=== PATIENT | female | born 1935 | race Caucasian/White ===

== ENCOUNTER 2023-04-26 21:05 | Inpatient (IN) | payer MEDICARE, OTHER ==
[~2023-04-26] VITALS: Ht 165.1 cm; Wt 61.9 kg
[2023-04-27] VITALS (11 sets, daily range): BP systolic 121–149; BP diastolic 47–63
--- NOTE | 2023-04-27 00:15 | NUR ---
pt ARRIVED TO FLOOR VIA STRETCHER. pt TX TO MED/SURG BED WITH THE HELP OF 4 OTHER PERSONEL. BED WEIGHT ASSESSED. DR. BARRERA CALLED AND INFORMED OF pt ARRIVAL. NEW ORDERS RECIEVED AND VERIFIED WITH REPEAT BACK METHOD. IV X2 ASSESSED, WNL. NEW STATLOCK FOR ALARCON CATHETER PLACED ON pt. ASSESSMENT AND VITAL SIGNS DONE. BRIEF PLACED ON pt. pt REPOSITIONED. CALL LIGHT WITHIN REACH. FAMILY IN .
[2023-04-27] MEDS ORDERED: LIDOCAINE 2% VISCOUS 6 ML SYR TOP ONE (00:45)
[2023-04-27] MEDS ORDERED: LACTATED RINGER'S 1,000 ML IV SCH ×4 (00:45→23:45)
[2023-04-27] MEDS ORDERED: HYDROmorphone HCL 1 MG/ML SYR IV PRN (00:45)
[2023-04-27] MEDS ORDERED: ondansetron HCL 4 MG/2 ML VIAL IV PRN ×2 (00:45→11:00)
--- NOTE | 2023-04-27 01:00 | NUR ---
pt FIDGETING IN THE BED AND GRIMENCING. PRN PAIN MEDICATION ADMINISTERED. IVF STARTED PER ORDER, SEE MAR. pt DENIES ANY OTHER NEEDS AT THIS TIME. CALL LIGHT WITHIN REACH.
--- NOTE | 2023-04-27 03:40 | NUR ---
PRN PAIN MEDICATION ADMINISTERED. pt WAS GETTING RESTLESS AND HAD GRIMANCE ON HER FACE. pt FAMILY REQUESTED A WARM BLANKET FOR pt. NOT OTHER NEEDS AT THIS TIME. CALL LIGHT WITHIN REACH.
[2023-04-27 05:40] LABS: BASOPHILS 0.5 % (0-2); EOSINOPHILS 0.1 % (0-6); HEMATOCRIT 32.4 % (35.0-50.0); HEMOGLOBIN 10.9 g/dL (12.0-18.0); LYMPHOCYTES 13.2 % (24-44); MCH 31.8 (27-36); MCHC 33.7 g/dl (30-36); MCV 94.3 fl (81-99); MONOCYTES 6.7 % (0-12); NEUTROPHILS 79.5 % (39-80); PLATELET COUNT 208 K/uL (140-440); RBC 3.44 M/ul (4.3-5.7); RDW 13.4 (10.5-15.0)
--- NOTE | 2023-04-27 05:45 | NUR ---
ASSESSMENT AND VITAL SIGNS DONE. pt DENIES ANY OTHER NEEDS AT THIS TIME. CALL LIGHT WITHIN REACH.
[2023-04-27 05:51] LABS: INR 1.06 (0.80-1.30); PROTIME 13.4 Sec (11.2-14.2)
[2023-04-27 05:53] LABS: PARTIAL THROMBOPLASTIN TIME 21.2 Sec (22.9-41.3)
[2023-04-27 05:57] LABS: ALBUMIN 3.1 g/dL (3.4-5.0); ALBUMIN/GLOBULIN RATIO 0.84 (1.1-2.4); BILIRUBIN, TOTAL 0.4 ng/dL (0.2-1.0); BUN/CREATININE RATIO 14.86 (6.0-28.6); CALCIUM 8.8 mg/dL (8.5-10.1); CREATININE, SERUM 0.74 mg/dL (0.55-1.02); MAGNESIUM 2.1 mg/dL (1.8-2.4); PHOSPHORUS, INORGANIC 3.8 mg/dL (2.5-4.9); PROTEIN, TOTAL 6.8 g/dL (6.4-8.2)
[2023-04-27] MEDS ORDERED: IBLOOD GLUCOSE TEST STRIP 1 EA TEST XX PRN (07:15)
--- NOTE | 2023-04-27 07:15 | NUR ---
RECEIVED REPORT FROM XIN PASTOR. PT AWAKE IN BED VISITING WITH GRANDDAUGHTER. PT STATES NO NEEDS AT THIS TIME, CALL LIGHT WITHIN REACH. ASSUMING CARE OF PT.
--- NOTE | 2023-04-27 07:57 | NUR ---
UR NOTE 04/27/23 RIGHT FEMORAL NECK FRACTURE RIGHT SHOULDER DISLOCATION NPO FOR SURGERY
[2023-04-27] MEDS ORDERED: CEFAZOLIN SODIUM 2 GM/20 ML SYR IV SCH ×2 (09:00→15:00)
[2023-04-27] MEDS ORDERED: LIDOCAINE HCL 1% 5 ML SDV SUB-Q ONE (09:00)
[2023-04-27] MEDS ORDERED: CEFTRIAXONE/SODIUM CHLORIDE 2 GM/100 ML PIGGYBACK IV SCH (09:00)
[2023-04-27] MEDS ORDERED: TRANEXAMIC ACID 2,000 MG in SODIUM CHLORIDE 0.9% 100 ML IV SCH (09:00)
[2023-04-27] MEDS ORDERED: MIDAZOLAM HCL 2 MG/2 ML VIAL ONE (09:18)
[2023-04-27] MEDS ORDERED: METOCLOPRAMIDE HCL 10 MG/2 ML SDV ONE (09:18)
[2023-04-27] MEDS ORDERED: KETOROLAC TROMETHAMINE 30 MG/ML VIAL ONE (09:18)
[2023-04-27] MEDS ORDERED: ondansetron HCL 4 MG/2 ML VIAL ONE (09:18)
[2023-04-27] MEDS ORDERED: fentaNYL citrate 100 MCG/2 ML VIAL ONE (09:18)
[2023-04-27] MEDS ORDERED: FAMOTIDINE 20 MG/ 2 ML VIAL ONE (09:18)
[2023-04-27] MEDS ORDERED: propofoL 200 MG/20 ML VIAL ONE (09:18)
[2023-04-27] MEDS ORDERED: DEXAMETHASONE SOD PHOS 4 MG/ML VIAL ONE (09:18)
[2023-04-27] MEDS ORDERED: LACTATED RINGER'S 1,000 ML IV ONE (09:18)
[2023-04-27] MEDS ORDERED: LIDOCAINE HCL 2% 5 ML SDV ONE ×2 (09:19→09:20)
[2023-04-27] MEDS ORDERED: BUPIVACAINE 0.75% IN DEXTROSE 2 ML AMP ONE (09:19)
[2023-04-27] MEDS ORDERED: BUPIVACAINE HCL 0.5% 30 ML VIAL ONE (09:20)
[2023-04-27] MEDS ORDERED: INTRA-ARTICULAR ANALGESIC INJECTION XX ONE (09:30)
[2023-04-27] MEDS ORDERED: ACETAMINOPHEN 1,000 MG/100 ML VIAL ONE (10:20)
--- NOTE | 2023-04-27 10:23 | NUR ---
ROUNDS. PT GONE FOR PROCEDURE. FAMILY IN ROOM. PROVIDED HOSPITALITY; FACILITATED STORY-TELLING; PROVIDED MACHINE PACKAGING TECHNICIAN EDUCATION; PROVIDED PRAYER. LEFT GUIDEPOST. FAMILY EXPRESSED APPRECIATION.
--- NOTE | 2023-04-27 10:29 | NUR ---
CONVERSATION WITH DR. BARRERA THIS MORNING. PATIENT WILL RETURN TO [facility] FOR FURTHER TRANSITIONAL CARE AND POSSIBLE PLACEMENT NEEDS AFTER SURGERY. PATIENT CURRENTLY IN OR. WILL RETURN TO SPEAK WITH PATIENT AND FAMILY LATER TODAY.
[2023-04-27] MEDS ORDERED: droPERidol 5 MG/2 ML VIAL IV PRN (11:00)
[2023-04-27] MEDS ORDERED: NALOXONE HCL 0.4 MG SYR IV PRN (11:00)
[2023-04-27] MEDS ORDERED: fentaNYL citrate 100 MCG/2 ML VIAL IV PRN (11:00)
[2023-04-27] MEDS ORDERED: IBLOOD GLUCOSE TEST STRIP 1 EA TEST VI PRN (11:00)
[2023-04-27] MEDS ORDERED: PROCHLORPERAZINE EDISYLATE 10 MG/2 ML VIAL IV PRN (11:00)
[2023-04-27] MEDS ORDERED: MORPHINE SULFATE 10 MG/ML VIAL IV PRN (11:00)
[2023-04-27] MEDS ORDERED: HYDROCODONE/ACETA 7.5/325 TAB PO PRN (11:00)
--- NOTE | 2023-04-27 11:19 | NUR ---
04/27/23 Carmenza9 Wanda Melgar 1105-PATIENT ARRIVED TO PACU ON 10L MASK NONAROUSABLE ORAL AIRWAY IN PLACE. RR 8. SR WITH PAC. IVF INFUSING. DRESSING TO RIGHT HIP CDI ICE APPLIED. NO HOSE AND SCDS IN PLACE. RIGHT FOOT GOOD CAP REFILL WARMTH AND PALPABLE PEDAL PULSE. PATIENTS EXTREMITIES STIFF HAS BILATERAL ELBOWS BEND AND ARMS TOWARD SHOULDERS. PUPILS ARE PINPOINT. 1115-PATIENT ON 6L MASK RR EVEN ORAL AIRWAY REMAINS IN PLACE.
--- NOTE | 2023-04-27 12:22 | NUR ---
PT ARRIVES TO UNIT FROM OR. RECEIVED REPORT FROM XIN LYNN. PT RESPONSIVE TO VOICE, APPEARS DROWSY. VSS. INCISION ON R HIP COVERED WITH ACTICOAT, C/D/I. PT FAMILY AT THE BEDSIDE, DENIES ANY QUESTIONS OR NEEDS AT THIS TIME. UPON ASSESSMENT CONTINUED FROM PRE-OP, REDDENED CIRCLES PRESENT ON BLE, UNCERTAIN IF THESE RESULTED FROM PT'S RECENT FALL. PT CURRENTLY ON 3L O2 VIA NC, CPOX IN PLACE, O2 SATURATION REMAINING >92%. CALL LIGHT WITHIN REACH.
[2023-04-27] MEDS ORDERED: TRANEXAMIC ACID IN NACL,ISO-OS 1,000 MG/100 ML PIGGYBACK IV ONE (12:39)
--- NOTE | 2023-04-27 13:18 | NUR ---
PT RESPONDS TO VOICE, APPEARS MORE ALERT THAN THE LAST HOUR. VSS. DAUGHTER AT THE BEDSIDE. PT STATES NO NEEDS AT THIS TIME, CALL LIGHT WITHIN REACH.
[2023-04-27] MEDS ORDERED: ATORVASTATIN CA40 MG PO (13:23)
[2023-04-27] MEDS ORDERED: DONEPEZIL HCL10 MG PO (13:24)
[2023-04-27] MEDS ORDERED: FLUOXETINE HCL20 MG PO (13:24)
[2023-04-27] MEDS ORDERED: OMEPRAZOLE40 MG PO (13:24)
[2023-04-27] MEDS ORDERED: LEVOTHYROXINE50 MCG PO (13:25)
[2023-04-27] MEDS ORDERED: SULFAMETHOXAZO1 EAC1 PO (13:25)
[2023-04-27] MEDS ORDERED: AMLODIPINE BESY10 MG PO (13:25)
[2023-04-27] MEDS ORDERED: LORAZEPAM1 MG PO (13:26)
--- NOTE | 2023-04-27 14:23 | NUR ---
PT BECOMING MORE ALERT, CONTINUES TO BE SLIGHTLY DROWSY. VSS. PT AND FAMILY STATE NO NEEDS AT THIS TIME. CALL LIGHT WITHIN REACH.
--- NOTE | 2023-04-27 16:43 | NUR ---
PT RESTING IN BED WITH EYES CLOSED, RESPIRATIONS EVEN AND UNLABORED, CPOX REMAINS IN PLACE, O2 SAT >95. PT FAMILY AT THE BEDSIDE, CALL LIGHT WITHIN REACH.
[2023-04-27] MEDS ORDERED: VITAMIN D350 MC3 PO (16:52)
[2023-04-27] MEDS ORDERED: CALCIUM PO (16:53)
[2023-04-27] MEDS ORDERED: [UNRECOGNIZED DRUG - OTHER] PO (16:53)
--- NOTE | 2023-04-27 16:54 | NUR ---
medications reconciled using pharmacy records, visual inspection of RX packs and family interview
--- NOTE | 2023-04-27 18:36 | NUR ---
PATIENT WAS SLEEPING WHEN I WALKED IN I WAKED HER UP TO TAKE HER VITALS. SHE WAS CONFUSED BUT I VERBALIZED THE STEPS I WAS DOING WHEN TAKING HER VITALS. SHE DIDNT EAT DINNER BUT SHE WANTED ICE CREAM AND I GOT THAT FOR HER. HER CALL LIGHT WAS NEAR HER AND I OFFERED IF SHE NEEDED ANYTHING ELSE AND SHE DENIED.
--- NOTE | 2023-04-27 19:05 | NUR ---
SHIFT REPORT RECEIVED FROM YONIIDALBERT ROBLERO AT BEDSIDE. pt AWAKE AND RESTING IN BED, BASELINE DEMENTIA NOTED PER REPORT. IV SITES X2 WNL, FLUIDS INFUSING WNL. RIGHT HIP DRESSING WNL, SCANT RED SHADOWING NOTED-WILL MONITOR. SCD'S AND NO HOSE IN PLACE WITH BILATERAL HEELS ELEVATED. FAMILY IN ROOM. pt HAS 3LNC IN PLACE, CPOX SHOWS SPO2 95%, HR 77. pt DENEIS NEEDS OR CONCERNS, CALL LIGHT IN REACH.
[2023-04-27] MEDS ORDERED: SENNOSIDES 1 TAB PO SCH (21:00)
[2023-04-27] MEDS ORDERED: ASPIRIN 325 MG TAB PO SCH (21:00)
[2023-04-27] MEDS ORDERED: MAGNESIUM HYDROXIDE 30 ML UDC PO SCH (21:00)
--- NOTE | 2023-04-27 21:05 | NUR ---
ASSESSMENT COMPLETE, SCHEDULED MEDS GIVEN-CRUSHED PER pt AND GRANDDAUGHTER REQUEST. EDUCATION PROVIDED ON MEDS, pt AND FAMILY VERBALIZED UNDERSTANDING. IV SITES X2 WNL, FLUSHED. IV FLUIDS INFUSING DIRECTED. ALARCON PATENT, CATH CARE DONE PER POLICY. VSS AND I&O'S COLLECTED, FRESH ICE WATER PROVIDED. NO NEW SHADOWING TO RIGHT HIP DRESSING NOTED, ICE PACK PRN AT BEDSIDE. WITH HELP FROM DIVING INSTRUCTORXIN LOWE, pt BOOSTED IN BED, COCCYX/BUTTOCKS WNL. BILATERAL HEELS ELEVATED WITH HEEL PROTECTION IN PLACE. NO ADDITIONAL NEEDS OR CONCERNS, CALL LIGHT IN REACH. BED ALARM ON FOR SAFETY.
--- NOTE | 2023-04-27 21:45 | NUR ---
GENIE HUBER ASK THIS RESORT HOST TO CHECK HER CATHETER PT FELT LIKE SHE NEEDED TO USE BEDPAN. FOUND ALARCON SL TWISTED NEAR THE STAT LOCK. ADJUST POSITION, CLEAR URINE FLOWING.
--- NOTE | 2023-04-27 22:15 | NUR ---
call light answered, pt's granddaughter reports pt feels pain w/ randi. randi manipulated, patent, and wnl-no kink noted. education provided to pt and family.
--- NOTE | 2023-04-27 22:22 | NUR ---
call light answered, granddaughter says pt is reporting pain. in room to assess, pt reports pain 5/10 in right shoulder and right hip. prn pain medication crushed, per pt, she crushes or splits meds at home. pt tolerated wnl. call light in reach.
--- NOTE | 2023-04-27 22:27 | EKG ---
[facility] [address] [place] [address] Signed Normal sinus rhythm Septal infarct , age undetermined Abnormal ECG No previous ECGs available Confirmed by Bola Pizarro MD () on 04/27/2023 10:26:55 PM Electronically Signed By: BOLA PIZARRO MD 04/27/232226 PATIENT NAME: GENIE BOLAND Electrocardiogram DATE OF : [birth year] PHYSICIAN: BOLA PIZARRO MD REPORT #: [id number] REPORT IS CONFIDENTIAL AND NOT TO BE RELEASED WITHOUT AUTHORIZATION
--- NOTE | 2023-04-27 23:22 | NUR ---
SCHEDULED ANCEF GIVEN-SEE EMAR. pt AWAKE AND RESTING QUIETLY IN BED, FAMILY IN ROOM. pt REPORTS SHE FEELS "BETTER", APPEARS MORE RELAXED ADN CALM AT THIS TIME.
[2023-04-27] MEDS ORDERED: LORazepam 1 MG TAB PO PRN (23:45)
--- NOTE | 2023-04-27 23:47 | NUR ---
call made to dr ann, pt becoming more restless in bed, takes ativan at home. md aware of bp/hr at start of shift. telephone order read back to resume pt's home dose ativan 1mg po tablet bid prn. also recieved orders for iv fluids-LR at 85mls/hr, continuously-order read back to confirm. report given to bam van, bam van to take over pt care at this time, granddaughter updated and questions answered.
--- NOTE | 2023-04-28 00:15 | NUR ---
REPORT RECIEVED FROM ODELL LAUREN. pt GETTING ANXIOUS AND WANTING TO STAND UP. PRN ATIVAN ADMINISTERED. pt EDUCATED ON THE NEED TO STAY IN THE BED AT THIS TIME. pt DENIES ANY OTHER NEEDS AT THIS TIME. CALL LIGHT WITHIN REACH.
[2023-04-28] MEDS ORDERED: LACTATED RINGER'S 1,000 ML IV SCH (00:45)
--- NOTE | 2023-04-28 02:01 | NUR ---
pt RESTLESS IN THE BED. pt DIDN'T KNOW WHERE SHE WAS AT. pt CONTINUES TO ASK QUESTIONS ABOUT WHAT THE PLAN WAS AND WHAT GOING TO HAPPEN. pt CONSOULABLE WITH TOUCH AND TALK BUT ONLY FOR A COUPLE SECONDS.
--- NOTE | 2023-04-28 02:37 | NUR ---
pt IS STILL A LITTLE BIT AGITATED AND TRYING TO MOVE OUT OF THE BED. SCDS IN PLACE. CPOX ON. PILLOW UNDER RIGHT SHOULDER BECAUSE IT WAS BOTHER pt. pt CONTINUES TO TAKE OFF O2. PT DESATS TO 85% ON RA. pt STARTLES EASY TO NOISES IN THE RM. pt CONTINUALLY KICKS OFF THE HEEL PROTECTORS AND THE TOWELS UNDER HER HEELS THAT WERE FOR ELEVATION. pt STILL WORRIED ABOUT WHAT IS GOING TO HAPPEN. pt IS CONSOULABLE WITH TOUCH AND TALK. CALL LIGHT WITHIN REACH.
--- NOTE | 2023-04-28 04:15 | NUR ---
pt RESTING IN THE BED WITH EYES CLOSED. RR EVEN AND UNLABORED. CALL LIGHT WITHIN REACH.
[2023-04-28 05:42] LABS: BASOPHILS 0.7 % (0-2); HEMATOCRIT 27.9 % (35.0-50.0); HEMOGLOBIN 9.6 g/dL (12.0-18.0); LYMPHOCYTES 10.5 % (24-44); MCH 32.1 (27-36); MCHC 34.3 g/dl (30-36); MCV 93.4 fl (81-99); MONOCYTES 8.6 % (0-12); NEUTROPHILS 80.2 % (39-80); PLATELET COUNT 184 K/uL (140-440); RBC 2.99 M/ul (4.3-5.7); RDW 13.8 (10.5-15.0)
--- NOTE | 2023-04-28 05:45 | NUR ---
FAMILY MEMBER TO DESK, WANTING TO HAVE ALARCON CHECKED, PT WANTING TO GET UP AND URINATE. URINE IN TUBING, MANIPULATED TUBING, AND INCREASE IN URINE OUT. PT SLEPT FROM "3:30 TIL WHEN LAB CAME IN" PER GRANDDAUGHTER. PT OPENS EYES BRIEFLY, THEN CLOSES.
[2023-04-28 06:06] LABS: ANION GAP 9.9 (7-21); BUN/CREATININE RATIO 15.27 (6.0-28.6); CALCIUM 8.8 mg/dL (8.5-10.1); CREATININE, SERUM 0.72 mg/dL (0.55-1.02); POTASSIUM 3.9 mmol/L (3.5-5.1)
[2023-04-28 06:07] VITALS: BP 144/57
--- NOTE | 2023-04-28 06:14 | NUR ---
ASSESSMENT AND VITAL SIGNS DONE. VSS. pt STARTLED WHEN THIS RN WENT IN THE RM. WAS ABLE TO CALM pt DOWN. ALARCON EMPTIED. DRESSING INTACT WITH MINIMAL SHADOWING. pt DENIES ANY OTHER NEEDS AT THIS TIME. CALL LIGHT WITHIN REACH.
[2023-04-28] MEDS ORDERED: TRANEXAMIC ACID 2,000 MG in SODIUM CHLORIDE 0.9% 100 ML IV SCH (07:00)
[2023-04-28] MEDS ORDERED: LIDOCAINE HCL 1% 5 ML SDV SUB-Q ONE (07:00)
[2023-04-28] MEDS ORDERED: CEFAZOLIN SODIUM 2 GM/20 ML SYR IV SCH (07:00)
--- NOTE | 2023-04-28 08:00 | NUR ---
PT WAS LAYING FLAT IN BED WITH EYES CLOSED SLEEPING. RAILROAD ACCOUNTANT ENTERED AND SPOKE TO FAMILY IN THE ROOM AND ASKED IF FAMILY OR PT WOULD LIKE ANYTHING THIS MORNING. FAMILY REFUSED ON BEHALF OF SLEEPING PT. CALL LIGHT IS WITHIN REACH NO OTHER COMPLAINTS OR CONCERNS
--- NOTE | 2023-04-28 08:20 | NUR ---
PT AWAKE THIS MORNING REPORT, FAMILY MEMBER AT BEDSIDE. NO NEEDS AT THIS TIME. CALL LIGHT WITHIN REACH. ATTEMPTED TO GO ASSESS PT AND SHE IS RESTING WITH EYES SHUT, INFORMED FAMILY I WOULD COME BACK LATER. ALL PT CARE NEEDS MET AT THIS TIME.
--- NOTE | 2023-04-28 09:42 | NUR ---
CALLED AND LEFT MESSAGE AT [facility] REGARDING SNF CARE AT [facility].
[2023-04-28] MEDS ORDERED: ARTIFICIAL TEARS 15 ML BTL OU PRN (09:45)
--- NOTE | 2023-04-28 10:14 | NUR ---
P/T WORKING WITH PT AT HIS TIME, FAMILY AT BEDSIDE. PT WAS PRE-MED WITH PAIN MEDICATION FOR 3/10 PAIN. ALL PT CARE NEEDS MET AT THIS TIME.
[2023-04-28 10:15] VITALS: BP 135/49
--- NOTE | 2023-04-28 10:31 | NUR ---
COIL WINDING MACHINES SET UP MECHANIC EPTIED ALARCON AND RECORDED VITALS AND I&OS. PT WAS WORKING WITH PT NO COMPLAINTS
--- NOTE | 2023-04-28 11:37 | NUR ---
ROUNDS. PT DECLINED STEAM CLEAN MACHINE OPERATOR VISIT AT THIS TIME. PROVIDED SILENT PRAYER.
--- NOTE | 2023-04-28 11:43 | NUR ---
UR NOTE 04/28/23 CONTINUES TO NEED INPATIENT CARE PT IVF PAIN CONTROL ALARCON MONITOR
--- NOTE | 2023-04-28 12:27 | NUR ---
PT SITTING UP IN CHAIR, DAUGHTER ASSISTING WITH HAVING LUNCH AT THIS TIME. DENIED ANY PT CARE NEEDS AT THIS TIME. CALL LIGHT WITHIN REACH.
--- NOTE | 2023-04-28 12:50 | NUR ---
PT REQUESTING TO GO BACK TO BED. IV FLUIDS RESTARTED. ALARCON REMAINS IN PLACE, YELLOW URINE. ALL PT CARE NEEDS MET AT THIS TIME. CALL LIGHT WITHIN REACH. DAUGHTER PRESENT AT BEDSIDE THIS AFTERNOON STILL.
[2023-04-28 13:20] VITALS: BP 125/46
[2023-04-28] MEDS ORDERED: TRIMETHOPRIM/SULFAMETHOXAZOLE 1 EA TAB PO SCH (13:29)
--- NOTE | 2023-04-28 13:58 | NUR ---
PT HAD HER EYES CLOSED AND RESTING WHEN CHANNEL MAN ENTERED THE ROOM TO RECORD VITAL SIGNS AND I&OS. CHANNEL MAN EMPTIED ALARCON. CHANNEL MAN PUT PT BEDSIDE TABLE CLOSER TO HER AND POINTED OUT WHERE THE WATER WAS. PT HAS FAMILY IN THE ROOM. PT STATES NO COMPLAINTS OR CONCERNS SHE JUST NEEDS SOME SLEEP. CALL LIGHT IS WITHIN REACH
--- NOTE | 2023-04-28 14:43 | NUR ---
PT RESTING IN BED, GRANDDGTR/DGTR PRESENT AT BEDSIDE. IV FLUIDS INFUSING. DENIES PAIN AT THIS TIME. ORAL ABX GIVEN WITH PUDDING. CALL LIGHT WITHIN REACH. ALL PT CARE NEEDS MET AT THIS TIME.
[2023-04-28 14:56] VITALS: BP 125/46
--- NOTE | 2023-04-28 15:22 | NUR ---
STEREOTYPE FINISHER ASSISTED PT TO THE RESTROOM TO TRY A BM. PT USED A FWW AND WAS VERY SHAKY. PT SEEMED TO BE HAVING SOME CONFUSION ABOUT THE SITUATION AND WHICH WAY TO GO, ECT. RN WAS NOTIFIED. PT ALSO COMPLAINS OF HIP PAIN ON HER RIGHT SIDE. STEREOTYPE FINISHER GAVE PT AN ICE PACK TO LAY WITH AND THE RN WAS NOTIFIED. PT IS LAYING IN BED WITH BLANKETS AND PLENTY OF PILLOWS. PT STATES NO FURTHER COMPLAINTS OR CONCERNS. CALL LIGHT IS WITHIN REACH
--- NOTE | 2023-04-28 15:57 | NUR ---
PT GOT UP WITH CAREGIVER TO BATHROOM. IN BED GIVEN A ICE PACK FOR SHARP PAIN TO (R) HIP. DSG CDI. FOLLOWED UP WITH PT AND STILL IN 05/21, OFFERED PRN PAIN MEDICATIONS, BUT DID NOT WANT SOMETHING SO STRONGS. PER DGTR REQUEST TO SEE IF PT COULD GET ORDER FOR TYLENOL PRN. CALL DR. BARRERA, PHONE ORDER FOR TYLENOL 1000MG Q8HR PRN. ORDERS INPUT.
[2023-04-28] MEDS ORDERED: ACETAMINOPHEN 500 MG TAB PO PRN (16:00)
--- NOTE | 2023-04-28 16:07 | NUR ---
CHART FAXED TO [facility] FOR SWING BED REFERRAL.
--- NOTE | 2023-04-28 16:59 | NUR ---
VALERIA ASSISTED PT INTO HER RECLINER FOR DINNER. PT HAS A BLANKET ON HER AND HAS FAMILY IN THE ROOM. CALL LIGHT IS WITHIN REACH NO COMPLAINTS OR CONCERNS
--- NOTE | 2023-04-28 18:00 | NUR ---
PT WAS UP IN CHAIR VISITING WITH FAMILY, VERY SLEEPY. AFTER A BIT, PT REQUESTED TO GET BACK INTO BED, 1 ASST WITH FWW, FAMILY ALSO HELPED WITH BOOSTING PT IN BED. PT REPORTS PAIN IMPROVED 2/10 AT THIS TIME. ICE PACK REMOVED FROM (R) HIP. IV FLUIDS INFUSING. WARM BLANKET PROVIDED. DSG HAS SCANT AMOUNT OF DRAINAGE PRESENT, NO ACTIVE BLEEDING. SCDS/HEEL PROTECTORS IN PLACE AT THIS TIME. ALL PT CARE NEEDS MET, CALL LIGHT WITHIN REACH.
[2023-04-28 18:39] VITALS: BP 129/43
--- NOTE | 2023-04-28 19:15 | NUR ---
shift report received from dayshift rehan barney at bedside, pt awake and resting in bed, on ra. rr even and unlabored. daughter at bedside. bed alarm placed for safety and call light in reach. bilat scd's, heel protectors, and coleen hose in place. scant red shadowing noted to right hip dressing. no needs or concerns verbalized.
[2023-04-28 20:07] VITALS: BP 127/46
--- NOTE | 2023-04-28 20:41 | NUR ---
assessment complete, scheduled meds crushed and given in pudding-see emar. iv sites x2 wnl, iv fluids infusing as directed. family in room. pt bosoted in bed, alarm on. bilat coleen hose and scd's in place, bilat heels elevated. bryan patent, cath care done. fresh water provided and calll light in reach. no new shadowing noted to right hip dressing, new ice pack in place.
--- NOTE | 2023-04-28 22:11 | NUR ---
SCHEDULED PO ABX GIVEN-SEE EMAR. pt DENIES ADDITIONAL NEEDS OR CONCERNS, CALL LIGHT IN REACH. FAMILY IN ROOM. BED ALARM ON.
--- NOTE | 2023-04-29 00:04 | NUR ---
rounded on pt, pt resting quietly in bed, eyes closed. on ra, rr even and unlabored. no dsitress noted, bryan patent. iv sites x2 wnl, fluids infusing as directed. bed alarm on and call light in reach. family in room and alt staying awake at bedside.
--- NOTE | 2023-04-29 01:22 | NUR ---
rounded on pt, pt resting in bed with eyes closed. on ra, rr even and unlabored. spot checked, spo2 97%, hr 69. bryan remains patent. iv site wnl, fluids infusing as directed. call light in reach.
--- NOTE | 2023-04-29 02:59 | NUR ---
rounded on pt, pt resting in bed with eyes closed. on ra, rr even and unlabored, no distress noted. family remains in room and attentive. randi boone patent, manipulated and draining diluted/yellow urine-secured to cath lock to thigh. bed alarm remains on for safety and call light in reach. iv site remains wnl, x2, fluids infusing wnl. focused assessment to right hip and cms unchanged compared to start of shift. call light and personal belongings in reach.
[2023-04-29 04:32] VITALS: BP 139/51
--- NOTE | 2023-04-29 04:56 | NUR ---
in room to collect vs and i&o's, bryan emptied. pt awoke to voice easily, returned to sleep while taking vitals. rr even and unlabored, no distress noted. pt boosted in bed, able to make subtle positon changes in bed. bilat coleen maguire, scd's noted along with elevated bilat heels. family remains in room.
[2023-04-29 05:25] LABS: BASOPHILS 1.2 % (0-2); EOSINOPHILS 1.9 % (0-6); HEMATOCRIT 29.6 % (35.0-50.0); HEMOGLOBIN 9.9 g/dL (12.0-18.0); LYMPHOCYTES 17.7 % (24-44); MCH 31.7 (27-36); MCHC 33.7 g/dl (30-36); MCV 94.1 fl (81-99); MONOCYTES 7.6 % (0-12); NEUTROPHILS 71.6 % (39-80); PLATELET COUNT 183 K/uL (140-440); RBC 3.14 M/ul (4.3-5.7); RDW 13.8 (10.5-15.0)
[2023-04-29 05:32] LABS: ANION GAP 8.8 (7-21); BUN/CREATININE RATIO 18.91 (6.0-28.6); CALCIUM 8.6 mg/dL (8.5-10.1); CREATININE, SERUM 0.74 mg/dL (0.55-1.02); POTASSIUM 3.8 mmol/L (3.5-5.1)
--- NOTE | 2023-04-29 06:12 | NUR ---
FAMILY TO RN STATION, REQUESTING NEW ICE PACK. ICE PACK PROVIDED. IV SITE REMAINS WNL, FLUIDS INFUSING DIRECTED. EDUCATED FAMILY AND ANSWERED QUESTIONS REGARDING RIGHT HIP DRESSING. NO NEW SHADOWING NOTED COMPARED TO START OF SHIFT. SCD'S, NO HOSE, AND BLE HEELS ELEVATED PER MD ORDERS. CALL LIGHT IN REACH, BED ALARM ON FOR SAFETY.
--- NOTE | 2023-04-29 06:24 | NUR ---
pt SLEPT OFF AND ON DURING THE NIGHT, LIGHT SLEEPER. FAMILY IN ROOM AND ATTENTIVE. RIGHT HIP DRESSING WNL WITH SCANT SHADOWING, RED IN COLOR. NO NEW SHADOWING COMPARED TO START OF SHIFT. BED ALARM ON, HX POSSIBLE DEMENTIA. VSS, IV FLUIDS INFUSING. BILAT NO HOSE, SCD'S AND ELEVATION OF BILAT HEEL. PAIN WELL CONTROLLED WITH PRN PAIN MEDICATION, NO PRN ANXIETY MEDS NEEDED THIS SHIFT. CMS INTACT TO RIGHT HIP, PRN ICE PACK.
--- NOTE | 2023-04-29 07:35 | NUR ---
Patient in bed resting, eyes closed, respirations even and non labored. Patient has no distress at this time. IV fluids infusing per provider order. Family at bedside visiting. No current needs, personal supplies and call light within reach.
--- NOTE | 2023-04-29 08:11 | NUR ---
Admin zofran 4MG IV for reported nausea.
--- NOTE | 2023-04-29 08:41 | NUR ---
Patient repositioned at this time per her request. Family remains at bedside.
--- NOTE | 2023-04-29 10:11 | NUR ---
Patient sitting up in chair, alert to self and place. Patient reports pain in right hip, rated this 7/10. One tab [place] 7.5/325mg po admin at this time. Dressing to right hip has small amount of dried shadowing. CMS intact to RLE. Family remains at bedside. Call light wthin reach.
[2023-04-29 10:12] VITALS: BP 138/55
--- NOTE | 2023-04-29 10:48 | OR ---
[facility] [address], [place] [address] Signed DATE OF OPERATION: 04/27/2023 SURGEON: Spenser Briceño MD PREOPERATIVE DIAGNOSIS: Right femoral neck fracture, displaced. POSTOPERATIVE DIAGNOSIS: Right femoral neck fracture, displaced. PROCEDURE PERFORMED: Right bipolar hemiarthroplasty. PRECISION FARMING COORDINATOR: Dot Frank PA-C. Dot was present and critical for all portions of procedure. ANESTHESIA: General. BLOOD LOSS: 155 mL. IMPLANTS: Gabbie FX size 9 stem, 46 mm bipolar and -3 28 mm head. BRIEF HISTORY: Marilynn is an 87-year-old female, who suffered a fall yesterday. She apparently had trouble with cognitive and ambulatory problems increasing since last summer. She did sustain a significant fall about two weeks ago. Last night's fall, however, she was complaining of right shoulder pain and right hip pain. She was found to have a right shoulder dislocation and right hip fracture. The shoulder was reduced in [place] and they contacted me and I agreed to accept the patient down here for treatment. Risks, benefits, and alternatives of surgery were discussed with the patient, her daughter and her . They elected to proceed. DESCRIPTION OF PROCEDURE: Once consent was obtained, she was taken to the operating room. After adequate anesthesia, she was placed on the operating room table in the left lateral decubitus position with an axillary roll. The hip was prepped and draped in a standard sterile Electronically Signed By: SPENSER BRICEÑO MD 04/29/23 1048 PATIENT NAME: KRYSTIAN,MARILYNN JUANY OPERATIVE REPORT DATE OF : [birth year] REPORT #: [id number] PHYSICIAN: SPENSER BRICEÑO MD PCP: WILTON CASTRO REPORT IS CONFIDENTIAL AND NOT TO BE RELEASED WITHOUT AUTHORIZATION [facility] [address], [place] [address] Signed fashion. The hip was approached through standard anterior lateral approach. A 6 inch longitudinal incision was carried through the skin and subcutaneous tissue and IT band was divided longitudinally. The vastus lateralis was divided from the tip of the trochanter along the anterior margin of the femur distally. It was subperiosteally elevated around anteriorly. The gluteus medius and minimus as well as capsule were then split. The femoral neck was noted to be on the outside of the superior capsule. There was absolutely no blood in the hip at all. There was no swelling or ecchymosis in the skin. The capsule was opened fully and the femoral head was removed. This was taken to back table and measured to 45 or 46. Attention was turned to the proximal femur. The femoral neck was shortened to one fingerbreadth above the lesser trochanter. The proximal femur was opened using the cookie cutter followed by the awl. The femur was then reamed and broached up to a 9, which was found to be well fitting. The 9 implant was selected and impacted until it was well-seated in the proximal femur. The -3 head and bipolar were assembled and placed on the femoral neck after cleaning the trunnion. The bipolar was impacted in position. The hip was reduced. Leg lengths were found to be good and she had excellent stability. There was no impingement. The wound was copiously irrigated with Irrisept and normal saline, injected with 50 mL of ropivacaine and Toradol mixture. The capsule was closed using #2 FiberWire. The vastus and IT band layers were closed independently using #2 Stratafix, the subcutaneous tissue with 0 Stratafix and the skin with prince. Wound was dressed with Acticoat-7 dressing. She was awakened and taken to recovery room in satisfactory condition. All sponge, needle, and instrument counts were correct. Spenser Briceño MD BA/MODL /[id number] Copies: ~ Electronically Signed By: SPENSER BRICEÑO MD 04/29/23 1048 PATIENT NAME: MARILYNN BOLAND OPERATIVE REPORT DATE OF : [birth year] REPORT #: [id number] PHYSICIAN: SPENSER BRICEÑO MD PCP: WILTON CASTRO REPORT IS CONFIDENTIAL AND NOT TO BE RELEASED WITHOUT AUTHORIZATION
--- NOTE | 2023-04-29 10:49 | NUR ---
ROUNDS. PT SLEEPING. DID NOT DISTURB. PROVIDED PRAYER.
--- NOTE | 2023-04-29 11:00 | NUR ---
PATIENT MOVED FROM CHAIR TO BED WITH A PIVOT TRANSFER, DUE TO DISCOMFORT VERBALIZED BY PATIENT AND FAMILY. BED ALARM SET. CALL HUNTER WITHIN REACH. PATIENT RESTING AND APPEARS COMFORTABLE.
--- NOTE | 2023-04-29 11:15 | NUR ---
Spoke with Dr. Briceño and updated we have not had a return call from [facility]. I called and was able to speak with Zaynab. She states they are full at this point and may have a bed open on Tue or . I tested this info to Dr. Briceño.
--- NOTE | 2023-04-29 12:01 | NUR ---
Received a reply from Dr. Briceño of Thank you. Spoke with family and updated there are no bed available at [facility] at this time. We will contact them on Tuesday and check for a bed. I did contact [facility] in [place] and they do not have any beds open at this time. Family would prefer [place] placement as this is their home. Will fu on Tuesday.
--- NOTE | 2023-04-29 13:02 | NUR ---
ADMIN ATIVAN 1MG PO FOR REPORTED ANXIETY.
--- NOTE | 2023-04-29 13:16 | NUR ---
Urena catheter removed at this time per provider order. Urena cath tip intact upon removal. Dry brief placed at this time. Family updated with plan of care. Patient encouarged to drink fluids as she no longer has IV fluids running, pt receptive.
[2023-04-29 14:01] VITALS: BP 131/46
--- NOTE | 2023-04-29 15:13 | NUR ---
PATIENT HAS FAMILY VISITING HER.
--- NOTE | 2023-04-29 16:00 | NUR ---
Patient up to void, 100ml clear yellow urine noted. Patient reports 5/10 right hip pain-one tab norco 7.5/325mg po admin at this time. Patient's family remains at bedside visiting.
[2023-04-29 18:25] VITALS: BP 136/50
[2023-04-29 18:54] VITALS: BP 136/50
--- NOTE | 2023-04-29 19:30 | NUR ---
REPORT RECEIVED FROM DAY SHIFT RN. PATIENT RESTING IN BED. NO FURTHER NEEDS. CALL LIGHT IN REACH.
--- NOTE | 2023-04-29 20:32 | NUR ---
FAMILY REQUESTING PATIENT TO KEEP SLEEPING AND TO WAIT ON VS, I&Os AND MEDICATIONS THIS EVENING. DR PIZARRO AWARE. FAMILY EDUCATED TO CALL WHEN PATIENT WAKES UP TO GIVE MEDICATIONS AND COMPLETE MY ASSESSMENT. DAUGHTER AND FAMILY IN ROOM STAYING OVER NIGHT. NO FURTHER NEEDS. CALL LIGHT IN REACH.
--- NOTE | 2023-04-29 21:15 | NUR ---
PATIENT UP TO BATHROOM WITH 1P SBA AND FWW TO VOID. NEW BREIF AND CORNEL IN PLACE. PATIENT BACK TO BED, SLOW AND STEADY. VS AND I&Os OBTAINED AND RECORDED. ASSESSMENT COMPLETE. PATIENT R HIP DRESSING HAS MINIMAL DRY DRAINAGE. PATIENT REPORTS PAIN. PRN PAIN MEDICATION ADMINSTERED. SCHEDULED MEDICATION ADMINSTERED. ALL PO MEDICAITONS CRUSHED AND GIVEN WITH PUDDING. PATIENT GARTH FAIR. FRESH WATER PROVIDED. IV FLUSHED AND WNL. PUREWICK PLACED AFTER FRANK CARE PROVIDED. PATIENT HAS NO FURTHER NEEDS. CALL LIGHT IN REACH. PATIENTS DAUGHTER AND GRANDDAUGHTER IN ROOM STAYING OVER NIGHT. SCDs IN PLACE.
[2023-04-29 21:21] VITALS: BP 139/50
--- NOTE | 2023-04-29 22:50 | NUR ---
PATIENT RESTING IN BED ON BACK WITH EYES CLOSED. RESPIRATIONS EVEN AND UNLABORED. CALL LIGHT IN REACH. FAMILY MEMBERS IN ROOM.
--- NOTE | 2023-04-30 00:31 | NUR ---
PATIENT RESTING IN BED ON BACK WITH EYES CLOSED. RESPIRATIONS EVEN AND UNLABORED. CALL LIGHT IN REACH. DAUGHTER AND GRANDDAUGHTER AT BEDSIDE.
--- NOTE | 2023-04-30 02:22 | NUR ---
PATIENT RESTING IN BED ON BACK WITH EYES CLOSED. RESPIRATIONS EVEN AND UNLABORED. CALL LIGHT IN REACH. DAUGHTER AND GRANDDAUGHTER ASLEEP IN ROOM.
--- NOTE | 2023-04-30 04:31 | NUR ---
DAUGHTER OUT TO NURSES STATION TO REPORT THE PATIENT NEEDS TO URINATE. PATIENT UP TO BATHROOM WITH SBA AND FWW TO VOID. PATIENT BACK TO BED. PATIENT GARTH WELL. ASSESSMENT COMPLETE. R HIP DRESSING C/D/I WITH MINIMAL DRY SHADOWING. PATIENT REPORTS PAIN. PRN PAIN MEDICATION ADMINISTERED, CRUSHED IN PUDDING. PATIENT HAS NO FURTHER NEEDS. CALL LIGHT IN REACH. FRESH ICE PACK PROVIDED. SCDs AND TEDHOSE IN PLACE.
[2023-04-30 05:30] VITALS: BP 128/50
--- NOTE | 2023-04-30 07:26 | NUR ---
Patient in bed resting, eyes closed, respirations even and non labored. Patient has no notable distress. Daughter at bedside reports patient slept really well last night. Fresh water/coffee provided to family. No curren needs.
--- NOTE | 2023-04-30 08:01 | NUR ---
WHARF HELPER ENTERED ROOM TO MAKE MORNING ROUNDS. PT WAS LAYING IN BED SOUND ASLEEP. PT FAMILY ASKED WHARF HELPER NOT TO DISTURB PT AND TO LET HER REST. WHARF HELPER UPDATED PT BOARD AND LET THE PT SLEEP PER FAMILY REQUEST. CALL LIGHT IS WITHIN REACH
--- NOTE | 2023-04-30 09:00 | NUR ---
Admin one tab of norco 7.5/325mg po for reports of 5/10 right hip pain.
[2023-04-30 09:28] VITALS: BP 125/46
--- NOTE | 2023-04-30 10:27 | NUR ---
POLY AREA SUPERVISOR TOOK VITAL SIGNS AND I&OS. PT HAD JUST RECEIVED A PAIN MED AND DIDN'T KNOW IF SHE NEEDED TO USE THE RESTROOM. POLY AREA SUPERVISOR WANTS TO WAIT UNTIL HER MEDICATION KICKS IN BEFORE TRANFERING HER TO BSC. FAMILY IN ROOM CALL LIGHT WITHIN REACH
--- NOTE | 2023-04-30 11:51 | NUR ---
Patient ambulating in hallway with physical therapy. Patient appears to be tolerating ambulation fair using FWW and gait belt for safety. See their notes for further details.
--- NOTE | 2023-04-30 12:18 | NUR ---
Patient in chair resting, eyes closed, respirations non labored. Patient easily woke to verbal stimuli. Patient reports good pain control at this time. Patient's daughter at bedside. No reported needs, call light within reach.
--- NOTE | 2023-04-30 12:48 | NUR ---
ASSISTED PT TO THE RESTROOM BECAUSE SHE FELT LIKE SHE HAD TO GO. PT TOOK A COUPLE PAUSES WHILE SHE WAS WALKING IN AND HAD HE EYES CLOSED. PRINT PRODUCTION ASSOCIATE ASSISTED PT IN PULLING DOWN HER BRIEFS AND SITTING ON THE TOILET. PT BECAME UPSET AND BEGAN CRYING BECAUSE SHE FELT LIKE SHE HAD TO GO BUT COULDN'T. PRINT PRODUCTION ASSOCIATE REASSURED HER THAT SHE WASN'T IN ANY [place] AND THAT SHE IS OKAY TO TAKE ALL THE TIME THAT SHE NEEDS. PT WAS STILL VISIBLY UPSET AND SAID "I JUST FEEL LIKE TO GO I NEED TO PUSH A BUTTON AND I CAN'T FIND IT." PRINT PRODUCTION ASSOCIATE TOLD PT THAT SHE WOULD LOOK FOR THE BUTTON AND GIVE IT TO HER. PRINT PRODUCTION ASSOCIATE ASSISTED PT BACK INTO HER RECLINER. PT WAS GIVEN BLANKETS AND HER LUNCH WAS PUT BACK IN FRONT OF HER. PRINT PRODUCTION ASSOCIATE HANDED THE PT HER CALL LIGHT AND TOLD HER THAT THIS WAS THE BUTTON TO PUSH WHEN SHE NEEDED TO GO. RN WAS NOTIFIED OF THE INTERACTION
[2023-04-30 13:10] VITALS: BP 127/50
--- NOTE | 2023-04-30 14:12 | NUR ---
ASSISTED PT FROM CHAIR TO BATHROOM, PT HAD UNMEASURED URINE VOID. ASSISTED PT WITH FWW BACK TO BED, SCDS APPLIED. WARM BLANKET PROVIDED TO PT, /DGTR PRESENT AT BEDSIDE. LIGHTS TURNED OUT PT IS VERY SLEEPT AT THIS TIME. CALL LIGHT WITHIN REACH. ALL PT CARE NEEDS MET AT THIS TIME.
--- NOTE | 2023-04-30 16:35 | NUR ---
Patient requested to walk in hallway. Patient tolerated ambulation well with fww/gait belt. Pt back to bed. Family remains at bedside, no current needs.
--- NOTE | 2023-04-30 17:08 | NUR ---
Patient reports tolerable pain at this time. Family remains at bedside.
[2023-04-30 18:12] VITALS: BP 141/48
--- NOTE | 2023-04-30 18:37 | NUR ---
BLOWER BLAST FURNACE ENTERED ROOM TO RECORD VITAL SIGNS AND I&OS. PT WAS LAYING FLAT WITH HER EYES CLOSED SLEEPING. PT DID NOT WANT TO EAT MUCH FOOD BUT SHE DID ASK HER FAMILY FOR WATER AND DRANK SOME. THIS WAS ALL CHARTED. PT STATED NO COMPLAINTS AND THE CALL LIGHT IS WITHIN REACH
--- NOTE | 2023-04-30 19:37 | NUR ---
REPORT RECIEVED FROM DAY SHIFT RN. PATIENT RESTING IN BED WITH FAMILY IN THE ROOM. PATIENT HAS NO CURRENT NEEDS. CALL LIGHT IN REACH.
--- NOTE | 2023-04-30 21:37 | NUR ---
IN ROOM TO ROUND ON pt AND TO COLLECT VS AND I&O'S FOR PRIMARY RN. pt AWOKE TO VOICE, SOMEWHAT IRRITABLE WITH CARES-REORINTED TO TIME AND SITUATION. FAMILY REMAINS IN ROOM AND ATTENTIVE TO pt NEEDS. WHILE THIS RN VISITS WITH FAMILY (ONE BEING AN HAND I CUTTER AND OTHER BEING A NURSE), pt STATES, "I'M GETTING TIRED OF THIS GAME...THIS TAKING GAME. I WANT TO GO TO SLEEP AND YOU'RE BARGING IN MY HOME". THERAPEUTIC COMMUNICATION PROVIDED, VSS. FRESH WATER PROVIDED. IV SITES X2 WNL AND FLUSHED PER PROTOCOL. FAMILY APPRECIATIVE OF CARES. PRIMARY RN SHWETA UPDATED AND MADE AWARE AND TO ADMINISTER EVENING MED PASS AND COMPLETE ASSESSMENT.
[2023-04-30 21:39] VITALS: BP 153/55
--- NOTE | 2023-04-30 22:10 | NUR ---
PATIENT SITTING UP IN BED WITH DAUGHTERS AT BEDSIDE. ASSESSMENT COMPLETE. R HIP DRESSING C/D/I WITH MINIMAL DRY SHADOWING. PATIENT UP TO BATHROOM WITH 1P SBA AND FWW TO VOID. PATIENT GARTH WELL. PATIENT BACK TO BED. NEW GOWN PROVIDED. SCHEDULED AND PRN MEDCICATION ADMINISTERED, CRUSHED IN PUDDING. PATIENT LEGS ELEVATED SO HEELS DON'T TOUCH THE BED. SCDs AND HEEL PROTECTORS REFUSED. TEDHOSE IN PLACE. PATIENT HAS NO FURTHER NEEDS. CALL LIGHT IN REACH.
--- NOTE | 2023-05-01 00:03 | NUR ---
ROUNDING ON PATIENT. PATIENT OPENED EYES WHEN THIS RN OPENED THE DOOR. PATIENT LOOKED SCARED AND STATED "I AM JUST TIRED OF MY HOUSE BEING BROKE INTO". THIS RN REASSURED HER THAT SHE IS IN THE HOSPITAL AND I AM HER NURSE. GRANDDAUGHTER AT BEDSIDE. PATIENT NOW RESTING WITH EYES CLOSED. NO FURTHER NEEDS. CALL LIGHT IN REACH.
--- NOTE | 2023-05-01 01:21 | NUR ---
GRANDDAUGHTER OUT TO NURSES STATION TO REPORT PATIENT HAVING PAIN. PRN PAIN MEDICATION ADMINISTERED, CRUSHED IN PUDDING. PATIENT TEARFUL AND WISHING SHE WAS HOME. R HAND IV VERY PAINFUL. THIS RN DCd R HAND IV. IV DCd WNL WITH TIP INTACT. PATIENT AND FAMILY HAVE NO FURTHER NEEDS. CALL LIGHT IN REACH.
--- NOTE | 2023-05-01 03:43 | NUR ---
PATIENT RESTING IN BED ON BACK WITH EYES CLOSED. RESPIRATIONS EVEN AND UNLABORED. GRANDDAUGHTERS ASLEEP AT BEDSIDE. PATIENT HAS NO FURTHER NEEDS. CALL LIGHT IN REACH.
--- NOTE | 2023-05-01 05:57 | NUR ---
call light answered, family reports pt woke up then had emesis while reporting pain to right hip, per request of family-prn pain and nausea medication given-see emar. pt now resting in chair, family remains in room. no further needs.
[2023-05-01 06:12] VITALS: BP 129/52
--- NOTE | 2023-05-01 06:13 | NUR ---
PATIENT RESTING IN CHAIR WITH EYES CLOSED. VS AND I&Os OBTAINED AND RECORDED. FRESH WATER PROVIDED. PATIENT HAS NO FURTHER NEEDS. CALL LIGHT IN REACH.
--- NOTE | 2023-05-01 06:55 | NUR ---
Report from XIN Lantigua. Patient sitting up in chair. Family members at bedside. Deny needs at this time. Call light in reach.
--- NOTE | 2023-05-01 09:13 | NUR ---
WORKING WITH PT, WALKING IN HALLWAY AT THIS TIME.
--- NOTE | 2023-05-01 12:20 | NUR ---
ATIVAN RECEIVED FOR ANXIETY RELATED TO PAIN, SEE EMAR.
--- NOTE | 2023-05-01 12:32 | NUR ---
PATIENT ALERT IN BED. SPOUSE AND GRANDDAUGHTER IN ROOM. SIPS OF ENSURE PROVIDED. INFORMED PATIENT ON IMPORTANCE OF PROTEIN AND FLUID INTAKE. FAMILY IN ROOM ATTEMPTS TO REMIND PATIENT WELL.
[2023-05-01 14:28] VITALS: BP 123/48
--- NOTE | 2023-05-01 14:40 | NUR ---
VERBAL ORDER DR. HUNTER/JOB, RN, FOR KUB PORTABLE FOR ABDOMINAL PAIN AND POSSIBLE CONSTIPATION. HAS NOT BEEN EATING OR DRINKING WELL.
[2023-05-01] MEDS ORDERED: bisacodyL 10 MG SUPP PR ONE (17:00)
--- NOTE | 2023-05-01 17:33 | NUR ---
PATIENT AMBULATES TO BATHROOM MULTIPLE TIMES TODAY. PAIN MANAGED WITH PO ANALGESICS. TAKES MEDS CRUSHED IN PUDDING. POOR APPETITE, SLIGHTLY DISTENDED ABDOMEN. KUB SHOWS STOOL BURDEN TODAY. SUPPOSITORY ADMINISTERED THIS EVENING.
[2023-05-01 18:26] VITALS: BP 137/60
--- NOTE | 2023-05-01 18:44 | NUR ---
DIFFICULTY PASSING STOOL. PUSHING WITHOUT ANY ABILITY TO PASS STOOL, PASSING LARGE AMOUNTS OF FLATUS. LARGE AMOUNT OF STOOL NOTED WHEN SUPPOSITORY ADMINISTERED. MANUAL EVACUATION OF RECTUM BY THIS NURSE. MEDIUM AMOUNT OF STOOL EVACUATED. MORE STOOL NOTED HIGHER UP. PATIENT UNABLE TO PASS MORE DUE TO FEELING WEAK.
[2023-05-01] MEDS ORDERED: MINERAL OIL 133 ML BTL PR ONE (19:00)
--- NOTE | 2023-05-01 19:02 | NUR ---
SHIFT REPORT RECEIVED FROM LAINE RN, PT RESTING IN BED, GRANDDAUGHTER AND DAUGHTER AT BEDSIDE, PT ALERT, DENIES NEEDS AT THIS TIME, PLAN OF CARE DISCUSSED.
[2023-05-01 21:03] VITALS: BP 145/54
--- NOTE | 2023-05-01 21:06 | NUR ---
RN TO ROOM, LAURIE HAD ASSISTED PT UP TO BSC, PT VOIDED 200ML YELLOW URINE, BACK TO BED USING FFW AND 1PA, REPOSITIONED UP IN BED, VS DONE AND STABLE, LEFT FA SL FLUSHES WELL, SITE REINFORCED, RT MEDS GIVEN CRUSHED WITH PUDDING, PT ALSO GIVEN NORCO PER ORDER FOR RIGHT HIP PAIN, ASSESSMENT COMPLETED, RIGHT HIP DRESSING INTACT WITH SMALL AMOUNT DRIED DRAINAGE, FRESH ICE PACK TO SITE, NO HOSE IN PLACE, PT DECLINES HEEL PROTECTORS, SIDE RAIL UP X 3, FAMILY TO SPEND THE NIGHT, PT WITHOUT OTHER REQUESTS.
--- NOTE | 2023-05-01 22:50 | NUR ---
PT APPEARS TO SLEEP, EYES CLOSED, RESP EVEN AND REG, FAMILY ASLEEP AT BEDSIDE, HOB ELEVATED APPROX 25 DEGREES.
[2023-05-01 23:22] VITALS: BP 145/54
--- NOTE | 2023-05-02 00:10 | NUR ---
PT ASLEEP, FAMILY REMAINS AT BEDSIDE, NO REQUESTS AT THIS TIME.
--- NOTE | 2023-05-02 01:19 | NUR ---
PT ASLEEP, RESP EVEN AND REG, GRANDDAUGHTER REPORTS PT JUST GOT UP TO BSC TO VOID AND HAVE MEDIUM BROWN STOOL, WITH HER ASSISTANCE, PT WITHOUT DISTRESS.
--- NOTE | 2023-05-02 02:10 | NUR ---
RN TO ROOM TO MAKE ROUNDS, PT TALKING SOFTLY, PT ASKED WHO RN WAS, RN STATES SHE IS HER NURSE, PT DOES NOT ANSWER RN WHEN ASKED IF SHE IS IN PAIN, BUT CLOSES HER EYES, GRANDDAUGHTER STATES SHE DOES THIS PERIODICALLY, BUT WILL LET RN KNOW IF PT NEEDS ANYTHING. PT RESTING, RESP REG, ICE PACK REMAINS COLD AND TO RIGHT HIP.
--- NOTE | 2023-05-02 04:03 | NUR ---
PT RESTING, LEFT UNDISTURBED AT THIS TIME, FAMILY REMAINS AT BEDSIDE.
[2023-05-02 05:50] VITALS: BP 143/53
--- NOTE | 2023-05-02 05:50 | NUR ---
PT AWAKE, RETURNING TO BED AFTER FAMILY MEMBER ASSISTED HER UP TO BSC, RN ASSIST WITH REPOSITIONING UP IN BED, VS DONE, PT AFEBRILE, ASSESSMENT COMPLETED AND UNCHANGED, PT MEDICATED WITH TYLENOL FOR C/O RIGHT HIP PAIN, HEADACHE AND NECK DISCOMFORT, PILLS CRUSHED AND GIVEN WITH PUDDING, WARM BLANKET GIVEN, PT FELT LIKE SHE MIGHT HAVE BM AND ASSISTED BACK UP TO BSC BUT UNABLE TO HAVE A STOOL, RETURNED BACK TO BED, HOB ELEVATED, GIVEN WATER PER DAUGHTER, PT RESTING WITH EYES CLOSED.
--- NOTE | 2023-05-02 07:28 | NUR ---
DAUGHTER TO NURSES DESK REQUESTING ATIVAN FOR PATIENT BECAUSE SHE IS GETTING ANXIOUS, PT ALERT, LAYING IN BED WITH FAMILY BY HER SIDE, PT LOOKS A BIT WORRIED, PT MEDICATED WITH ATIVAN PER ORDER. FAMILY STATE THAT THEY WILL LOWER HER HEAD OF BED AFTER A FEW MINUTES. PT TALKING WITH FAMILY.
--- NOTE | 2023-05-02 07:52 | NUR ---
pt sitting up in chair with family in room. no complaints at this time, pt alert, awake, and pleasant.
--- NOTE | 2023-05-02 08:30 | NUR ---
PATIENT RESTING IN BED. PATIENT UP TO BATHROOM WITH 1P SBA AND FWW TO HAVE BM. PATIENT BACK TO BED. SMALL SORE NOTED ON RIGHT BUTTOX. BARRIER CREAM AND NEW BREIF APPLIED. PATIENT BACK TO BED. PATIENT FLOATED ON 2 PILLOWS UNDER BILAT HIPS. SCHEDULED AND PRN MEDICATION ADMINISTERED. MEDICATIONS ADMINISTERED CRUSHED UP IN PUDDING. VS AND I&Os OBTAINED AND RECORDED. PATIENT FAMILY IN ROOM. BED BATH PROVIDED. NEW GOWN PROVIDED. NEW CORNEL IN PLACE. PATIENT HAS NO FURTHER NEEDS. CALL LIGHT IN REACH.
--- NOTE | 2023-05-02 08:45 | NUR ---
PT UP TO COMMODE WITH 1 PERSON ASSIST WITH GAIT BELT AND WALKER. TOLERATED WELL.
--- NOTE | 2023-05-02 09:00 | NUR ---
PT ASSISTED BACK TO BED FROM COMMODE. ASSESSMENT COMPLETE. PT DENIES PAIN AT THIS TIME. FAMILY ATTENTIVE AND AT BEDSIDE. NO FURTHER NEEDS IDENTIFIED AT THIS TIME.
--- NOTE | 2023-05-02 09:18 | NUR ---
ClINICAL REVIEW: 2MN RULE FOR [facility] MEDICARE IP 04/27/23 @ 0004 YES ADMITTED FROM HOME, AWAITING SNF PLACEMENT 05/05/23
[2023-05-02 09:41] VITALS: BP 131/50
--- NOTE | 2023-05-02 09:41 | NUR ---
ROUNDS. FAMILY IN ROOM. PT AND FAMILY EXHIBIT STRONG RELATIONAL AND MICHELLE RESOURCES. PROVIDED PRAYER; LISTENED EMPATHETICALLY; PROVIDED SUPPORTIVE PRESENCE; PROVIDED HOSPITALITY. PT AND EXPRESSED APPRECIATION.
--- NOTE | 2023-05-02 10:54 | NUR ---
IN TO TALK TO PATIENT. NURSE AT BEDSIDE.
[2023-05-02 11:22] VITALS: BP 131/50
--- NOTE | 2023-05-02 12:07 | NUR ---
PT SITTING UP IN CHAIR WITH FAMILY ASSISTING PT IN EATING HER LUNCH.
[2023-05-02 14:48] VITALS: BP 147/56
--- NOTE | 2023-05-02 14:58 | NUR ---
PT BACK IN BED AFTER USING COMMODE. NO REQUESTS AT THIS TIME. FAMILY ATTENTIVE AT BEDSIDE.
--- NOTE | 2023-05-02 16:44 | NUR ---
ATIVAN AND TYLENOL GIVEN PER FAMILY REQUEST. PT STARTING TO GET AGGITATED. PT ALERT AND AWAKE AND VISITING. RESPIRATIONS EVEN AND UNLABORED.
[2023-05-02 18:15] VITALS: BP 121/48
--- NOTE | 2023-05-02 18:53 | NUR ---
PT RESTING IN BED WITH FAMILY AT BEDSIDE. NO REQUESTS AT THIS TIME.
--- NOTE | 2023-05-02 19:30 | NUR ---
REPORT RECEIVED FROM DAY SHIFT RN. PATIENT RESTING IN BED ON BACK. FAMILY MEMBERS IN ROOM. NO FURTHER NEEDS. CALL LIGHT IN REACH.
[2023-05-02 20:26] VITALS: BP 135/48
--- NOTE | 2023-05-02 22:00 | NUR ---
PATIENT FLOATED WITH PILLOWS UNDER BILAT HIPS. NO FURTHER NEEDS. CALL LIGHT IN REACH.
--- NOTE | 2023-05-02 23:50 | NUR ---
PATIENT REPORTING PAIN. PRN PAIN MEDICATION ADMINISTERED, CRUSHED UP IN PUDDING. PATIENT RESTING IN BED ON LEFT SIDE. ALLLYVEN PLACED ON SACRUM. TEDHOSE IN PLACE. PILLOW BETWEEN LEGS. APPLE SAUCE PROVIDED. FAMILY IN ROOM. PATIENT HAS NO FURTHER NEEDS. CALL LIGHT IN REACH.
--- NOTE | 2023-05-03 01:19 | NUR ---
PATIENT RESTING IN BED WITH EYES CLOSED. RESPIRATIONS EVEN AND UNLABORED. GRANDDAUGHTER AT BEDSIDE IN CHAIR. CALL LIGHT IN REACH.
--- NOTE | 2023-05-03 02:49 | NUR ---
PATIENT RESTING IN BED ON BACK WITH EYES CLOSED. RESPIRATIONS EVEN AND UNLABORED. GRANDDAUGHTER ASLEEP IN CHAIR AT BEDSIDE. NO FURTHER NEEDS. CALL LIGHT IN REACH.
--- NOTE | 2023-05-03 03:59 | NUR ---
DAUGHTER OUT TO NURSES STATION TO REPORT PATIENT IN PAIN. PRN PAIN MEDICATION ADMINISTERED, CRUSHED IN PUDDING. PATIENT REPOSITIONED IN BED. TWO PILLOWS PLACED UNDER RIGHT SIDE OF BODY. PILLOW PLACED UNDER LEGS. PATIENT R HIP DRESSING CLEAN AND DRY WITH MINIMAL SHADOWING PRESENT. TEDHOSE IN PLACE ON BILAT LEGS. NO FURTHER NEEDS. FAMILY IN ROOM AT BEDSIDE. NO FURTHER NEEDS. CALL LIGHT IN REACH.
--- NOTE | 2023-05-03 06:48 | NUR ---
PATIENT RESTING IN BED WITH EYES CLOSED. DAUGHTER IN CHAIR AT BEDSIDE. RESPIRATIONS EVEN AND UNLABORED. FAMILY REQUESTING NOT TO WAKE PATIENT AT THIS TIME TO OBTAIN VS. NO FURTHER NEEDS.
--- NOTE | 2023-05-03 06:50 | NUR ---
PATIENT RESTING IN BED ON BACK WITH EYES CLOSED. RESPIRATIONS EVEN AND UNLABORED. CALL LIGHT IN REACH.
--- NOTE | 2023-05-03 06:53 | NUR ---
PATIENT IN BED ON BACK WITH EYES CLOSED. RESP EVEN AND UNLABORED. CALL LIGHT IN REACH.
--- NOTE | 2023-05-03 07:16 | NUR ---
REPORT FROM XIN ROCK.
--- NOTE | 2023-05-03 07:35 | NUR ---
PATIENT GIVEN ONE CRUSHED NORCO. PATIENT IS 5-6/10 PER FACES PAIN SCALE. MED CRUSHED AND GIVEN WITH PUDDING. FAMILY IS IN ROOM WITH PATIENT.
--- NOTE | 2023-05-03 08:24 | NUR ---
IN TO HELP PATIENT INTO BATHROOM. FAMILY IN ROOM AND ASSISTING. PATIENT TO BATHROOM AND BACK TO BED, 1PA FWW. PATIENT REPOSITIONED AND READY FOR BREAKFAST. CALL LIGHT IN REACH. NO FURTHER NEEDS AT THIS TIME.
[2023-05-03 09:03] VITALS: BP 133/54
--- NOTE | 2023-05-03 09:47 | NUR ---
MORNING ASSESSMENT IS COMPLETE. PATIENT HAS REDUCED PAIN AND INCREASED CONFUSION AND IS SLEEPY. OT IN TO WORK WITH PATIENT AND AMBULATED PATIENT INTO BATHROOM TO VOID/BM. RIGHT HIP DRAINAGE IS INTACT WITH SMALL, STABLE AMOUNT OF OLD DRY DRAINAGE. DISCUSSED WITH FAMILY THAT PATIENT MAY NEED A SMALLER DOSE OF NARCOTIC PAIN MEDICATION AND THEY PLAN TO DISCUSS THIS WITH DR. BARRERA. FAMILY IN ROOM WITH PATIENT.
--- NOTE | 2023-05-03 10:00 | NUR ---
ROUNDS. CONNECTED WITH DAUGHTER IN HALLWAY. INDICATED PATIENT HAS EXPRESSED BOTH FRUSTRATION WITH INJURY AND PHYSICAL LIMITATIONS AND DETERMINATION TO GET BETTER. LISTENED EMPATHETICALLY; PROVIDED SUPPORTIVE PRESENCE; PROVIDED ANTICIPATORY GUIDANCE. DAUGHTER EXPRESSED GRATITUDE.
--- NOTE | 2023-05-03 11:19 | NUR ---
Patient working with PT. Reports pain, granddaughter asks this RN if pain medication is available. 1 tab norco administered, patient able to swallow pill whole with water. Sitting up to chair after working with PT.
--- NOTE | 2023-05-03 11:30 | NUR ---
Called and left message for Melyssa at [facility] requesting placement for this pt. I was able to speak with one of the Rns, she states they remain full. She will request Melyssa call. I called and left messages at [phone] and [phone].
--- NOTE | 2023-05-03 12:05 | NUR ---
PHYSICIAN IN TO SEE PATIENT. OKAY TO SHOWER WITH OLD BANDAGE AND REPLACE WITH NEW ACTICOAT AFTER.
--- NOTE | 2023-05-03 12:30 | NUR ---
Updated Dot from ortho, I have not had a reply from . I did contact [facility] in [place]. They do not have any beds available. Will cont. to attempt to place in [place] as this is where pt and family live. Family feel it would be a hardship on the spouse if we were to attempt to place in the [place] area, where there are currently a bed open.
[2023-05-03 12:54] VITALS: BP 125/53
--- NOTE | 2023-05-03 12:57 | NUR ---
INTO DO VITALS ON PATIENT. PATIENT RESTING IN THE CHAIR WITH FAMILY. SHE HAS NOT ATE ANY OF HER LUNCH BUT THE FAMILY IS GOING TO WORK WITH HER ON THAT.
--- NOTE | 2023-05-03 13:00 | NUR ---
PATIENT UP TO CHAIR, DENIES PAIN.
--- NOTE | 2023-05-03 15:37 | NUR ---
PATIENT UP TO SHOWER. RIGHT HIP ACTICOAT CHANGED. LINENS CHANGED, FRESH GOWN, WARM BLANKETS IN PLACE. PATIENT IS CURRENTLY FLOATED ON TWO PILLOWS. FAMILY IN ROOM.
--- NOTE | 2023-05-03 16:32 | NUR ---
REPORT GIVEN TO XIN ROMAN.
--- NOTE | 2023-05-03 17:05 | NUR ---
No reply from [place] at this time.
[2023-05-03 17:45] VITALS: BP 128/47
[2023-05-03 17:48] VITALS: BP 128/47
--- NOTE | 2023-05-03 19:00 | NUR ---
recieved pt report from nurse. Pt is in room with family and friend. Pt states that she needs nothing at this. no cares needed or requested call light within reach
--- NOTE | 2023-05-03 21:43 | NUR ---
pt meds given. pt and family requested no to any bowel meds. pt and family requested ativan and norco for pain. both administered. vitals taken. no abnormal findings. pt and family requested that we limit our visits to not disturb pt from resting. pt family rupal requested that she be contacted via phone before we enter at night. no other cares needed or requested at this time call light within reach
[2023-05-03 21:44] VITALS: BP 140/51
--- NOTE | 2023-05-03 23:45 | NUR ---
pt is currently asleep. family has asked that we please do not disturb her tonight as much as possible. no concerns even and unlabored breathing noted. call light within reach
[2023-05-04] VITALS (7 sets, daily range): BP systolic 114–148; BP diastolic 45–58
--- NOTE | 2023-05-04 04:36 | NUR ---
[facility]
--- NOTE | 2023-05-04 04:46 | NUR ---
pt is in room with family who are assisting her.pt family requested water with minimum ice. pt is resting no other cares needed or requested at this time call light within reach
--- NOTE | 2023-05-04 07:15 | NUR ---
REPORT RECEIVED FROM RN CORRECTIONAL RN KIESHA. PATIENT IS LYING IN BED AWAKE, RESPIRATIONS ARE EVEN AND UNLABORED. PATIENT WITH A FAMILY MEMBER IN THE RECLINER AND ANOTHER FAMILY MEMBER ON THE COUCH. PATIENT STATED NO FURTHER NEEDS AT THIS TIME. CALL LIGHT AND PERSONAL BELONGINGS ARE WITHIN REACH.
--- NOTE | 2023-05-04 07:56 | NUR ---
CAR FERRY MASTER ENTERED ROOM FOR HOURLY ROUNDING. PT WAS LAYING DOWN IN BED EYES CLOSED RESTING. FAMILY IS IN THE ROOM. PT WAS SLEEPING. CAR FERRY MASTER WANTED TO LET PT SLEEP. CALL LIGHT IS WITHIN REACH
--- NOTE | 2023-05-04 10:30 | NUR ---
PATIENT FULL ASSESSMENT COMPLETE AND DOCUMENTED IN THE CHART. PATIENT IS SITTING UPRIGHT IN THE RECLINER WITH THE LOWER EXTREMITIES ELEVATED. PATIENT WITH FOUR VISITORS IN THE ROOM AT THIS TIME. PATIENT DROWSY AFTER RECEIVING ATIVAN EARLIER THIS MORNING. PATIENT STATED SHE IS IN PAIN. PAIN FACE SCALE COMPLETE AND GOT A RATING 2/10. PATIENT WITH SENSATION INTACT. PATIENT WITH COMPLAIANTS OF NUMBNESS AND TINGLING BUT UNABLE TO IDENTIFY WHERE IT IS. PATIENT LUNG SOUNDS ARE CLEAR BILATERALLY IN ALL LUNG RIZZO. PATIENT IS ON ROOM AIR. PATIENT WITH NORMAL S1 AND S2 AUSCULTATED. RADIAL PULSES ARE STRONG BILATERALLY. PATIENT BOWEL TONES ARE ACTIVE IN ALL FOUR QUADRANTS. PATIENT WITH SCATTERED BRUISING DUE TO "PREVIOUS FALLS". PATIENT AND FAMILY STATED NO FURTHER NEEDS AT THIS TIME. CALL LIGHT AND PERSONAL BELONGINGS ARE WITHIN REACH.
--- NOTE | 2023-05-04 11:15 | NUR ---
PATIENT UP TO BATHROOM AND BACK TO BED, 1PA FWW. FAMILY HELPED. WAFFLE MATTRESS PLACED ON BED. LINENS CHANGED. PATIENT NOW BACK IN BED. FAMILY IN ROOM. CALL LIGHT IN REACH. NO FURTHER NEEDS AT THIS TIME.
--- NOTE | 2023-05-04 11:46 | NUR ---
PATIENT IS LYING IN BED AND TALKING TO HER DAUGHTER AT THE BEDSDIE. PATIENT STATED NO NEEDS AT THIS TIME. CALL LIGHT AND PERSONAL BELONGINGS ARE WITHIN REACH.
--- NOTE | 2023-05-04 12:00 | NUR ---
Spoke with Dot from Ortho. Updated we have not heard from at this time. CM will call later today to contact Luz Maria.
--- NOTE | 2023-05-04 12:10 | NUR ---
PATIENT BREAKFAST PLATE MICROWAVED FOR HER BECAUSE SHE DID NOT WANT IT. PATIENT DAUGHTER IS STILL AT THE BEDSIDE. PATIENT STILL A LITTLE DROWSY AT THIS TIME. PATIENT STATED NO FURTHER NEEDS AT THIS TIME. CALL LIGHT AND PERSONAL BELONGINGS ARE WITHIN REACH.
--- NOTE | 2023-05-04 12:37 | NUR ---
ALINE SMITH FOR MET WITH THE PATIENT AND FAMILY. PATIENT AND FAMILY STATED NO FURTHER NEEDS. PHYSICAL THERAPY IS NOW IN WITH THE PATIENT. CALL LIGHT AND PERSONAL BELONGINGS ARE WITHIN REACH.
[2023-05-04] MEDS ORDERED: LEVOTHYROXINE SODIUM 50 MCG TAB PO SCH (12:43)
[2023-05-04] MEDS ORDERED: PANTOPRAZOLE SODIUM 40 MG TABEC PO SCH (12:45)
[2023-05-04] MEDS ORDERED: OXYCODONE HCL 5 MG TAB PO PRN (13:00)
--- NOTE | 2023-05-04 13:58 | NUR ---
ROUNDS. CONNECTED WITH IN HALLWAY. INDICATED CONCERN BUT THEN INDICATED THIS WAS NOT A GOOD TIME FOR A VISIT. PROVIDED SILENT PRAYER. WILL ATTEMPT VISIT TIME ALLOWS.
[2023-05-04] MEDS ORDERED: ACETAMINOPHEN 500 MG TAB PO SCH (15:00)
[2023-05-04 15:37] LABS: BILIRUBIN, URINE NEGATIVE (negative); BLOOD/HGB, URINE TRACE-I (Negative); KETONE, URINE NEGATIVE (Negative); LEUK ESTERASE, URINE NEGATIVE (negative); NITRITE, URINE NEGATIVE (negative); PH, URINE 5.5 (5-7)
--- NOTE | 2023-05-04 15:37 | NUR ---
PATIENT ABLE TO VOID. URINE SAMPLE SENT TO LAB. PATIENT WITH PAIN RATED 3/10. SCHEDULED TYLENOL ADMINISTERED PER THE EMAR. PATIENT AND DAUGHTER IS AT THE BEDSIDE. RIGHT HIP DRESSING IS INTACT. DRY DRAINAGE NOTED. PATIENT SKIN ASSESSMENT COMPLETE AND DOCUMENTED IN THE CHART. ALEVYN PLACED ON THE LEFT INNER KNEE. BRUISING NOTED ON THE LEGS, ARMS, HANDS/WRISTS, AND ON THE RIGHT SIDE OF THE FOREHEAD. PATIENT AND FAMILY STATED NO FURTHER NEEDS AT THIS TIME. CALL LIGHT AND PERSONAL BELONGINGS ARE WITHIN REACH.
[2023-05-04 15:43] LABS: BACTERIA, URINE NONE SEEN /hpf (negative); CASTS, URINE NONE SEEN \\lpf; COLLECTION TYPE, URINE CLEAN CATCH; CRYSTALS, URINE NONE SEEN (0-1+); RED BLOOD CELLS, URINE 0-1 /hpf (0-5); REFLEX CULTURE, URINE No (No); WHITE BLOOD CELLS, URINE 0-1 /HPF (0-5)
--- NOTE | 2023-05-04 15:45 | NUR ---
DELICIA Frank, called and left a message with Luz Maria from [facility] as we have not received a return call.
--- NOTE | 2023-05-04 16:21 | NUR ---
PATIENT STATED NO PAIN AT THIS TIME. PATIENT WITH AND DAUGHTER AT THE BEDSIDE. PATIENT FINISHED HER PEANUT BUTTER AND JELLY SANDWICH. PATIENT STATED NO FURTHER NEEDS AT THIS TIME. CALL LIGHT AND PERSONAL BELONGINGS ARE WITHIN REACH.
--- NOTE | 2023-05-04 16:44 | NUR ---
GIFT SHOP CLERK ASSISTED PT TO THE RESTROOM. PT SEEMED VISIBLY UPSET AND CONFUSED. PT WAS ABLE TO WALK TO THE TOILET WITH GIFT SHOP CLERK A STAND BY ASSIST. GIFT SHOP CLERK HELPED PT WIPE AND RECORDED PT OUPUT. PT IS SITTING UP IN HER RECLINER WITH A WAFFLE PAD UNDER HER. CALL LIGHT IN REACH FAMILY IN THE ROOM
[2023-05-04] MEDS ORDERED: ATORVASTATIN 40 MG TAB PO SCH (17:00)
--- NOTE | 2023-05-04 18:00 | NUR ---
ALEVEYN PLACED BETWEEN THE PATIENTS BUTTOCKS DUE TO REDNESS. BARRIER CREAM PLACED ON JENNY SKIN BELOW THE ALEVYN. PATIENT TOLERATED WELL.
--- NOTE | 2023-05-04 19:49 | NUR ---
REPORT RECEIVED FROM DAY SHIFT RN. PATIENT UP TO BATHROOM TO VOID WITH 1P SBA AND FWW TO VOID. PATIENT BACK TO BED. PATIENT FLOATED WITH 2 PILLOWS UNDER BILAT HIPS. PILLOW UNDER BILAT LEGS. PATIENT HAS NO FURTHER NEEDS. CALL LIGHT IN REACH. FAMILY MEMBERS IN ROOM.
--- NOTE | 2023-05-04 20:15 | NUR ---
PATIENT'S FAMILY CALLED. SBA TO THE BATHROOM AND BACK TO BED USING WALKER. PATIENT'S FAMILY REQUESTING TO HAVE PATIENT'S PAIN MEDICATION AND MEDS TO CALM HER. PRIMARY RN NOTIFIED.
--- NOTE | 2023-05-04 20:52 | NUR ---
IN ROOM TO ASSESS pt, PER RAIL LAYER, FAMILY REQUESTING PRN ANXIETY AND PRN PAIN MEDICATION. pt FOUND RESTING IN BED WITH EYES CLOSED, ON RA. RR EVEN AND UNLABORED, NO DISTRESS NOTED, AWOKE AND SOMEWHAT STARTLED WHEN OPENING DOOR. FAMILY INFOMRED RN IN ANOTHER pt ROOM AND AWARE OF REQUEST FOR PRN MEDICATIONS, CALL LIGHT IN REACH. FRESH WATER PROVIDED TO pt.
[2023-05-04] MEDS ORDERED: DONEPEZIL HCL 10 MG TAB PO SCH (21:00)
--- NOTE | 2023-05-04 21:10 | NUR ---
PATIENT RESTING IN BED. PATIENT UP TO BATHROOM TO VOID WITH 1P SBA AND FWW. PATIENT BACK TO BED. POSITIONED IN BED WITH 2 PILLOWS UNDER BILAT HIPS. PILLOW UNDER BILAT LEGS. SCHEDULED AND PRN MEDICATION ADMINISTERED. IV FLUSHED AND WNL. R HIP DRESSING C/D/I. ALLYVEN ON SACRUM C/D/I. WAFFLE MATRESS PUMPED UP. WARM BLANKET PROVIDED. ICE PACK PROVIDED. PATIENT HAS NO FURTHER NEEDS. CALL LIGHT IN REACH. DAUGHTER AT BEDSIDE STAYING OVER NIGHT.
--- NOTE | 2023-05-04 22:03 | NUR ---
CALL LIGHT ANSWERED. PATIENT REPOSITIONED IN BED WITH 2 PILLOWS UNDER BILAT HIPS. PATIENT HAS NO FURTHER NEEDS. CALL LIGHT IN REACH.
--- NOTE | 2023-05-04 23:04 | NUR ---
CALL LIGHT ANSWERED. PATIENT UP WITH 1P SBA AND FWW TO VOID. PATIENT BACK TO BED. TWO PILLOWS PLACE UNDER RIGHT HIP. WARM BLANKET PROVIDED. PATIENT HAS NO FURTHER NEEDS. CALL LIGHT IN REACH.
[2023-05-05] VITALS (7 sets, daily range): BP systolic 117–157; BP diastolic 50–67
--- NOTE | 2023-05-05 01:09 | NUR ---
CALL LIGHT ANSWERED. PATIENT UP TO BATHROOM TO VOID WITH 1P SBA AND FWW. PATIENT BACK TO BED. PATIENT FLOATED WITH 2 PILLOWS UNDER BILAT HIPS. PATIENT TEARFUL AND STATING PAIN IN R HIP. PRN PAIN MEDICATION ADMINISTERED. PATIENT DAUGHTER IN ROOM AT BEDSIDE. PATIENT HAS NO FURTHER NEEDS. CALL LIGHT IN REACH.
--- NOTE | 2023-05-05 03:15 | NUR ---
PATIENT RESTING IN BED ON BACK. RESPIRATIONS EVEN AND UNLABORED. CALL LIGHT IN REACH.
--- NOTE | 2023-05-05 04:42 | NUR ---
CALL LIGHT ANSWERED. PATIENT UP TO BATHROOM WITH 1P SBA AND FWW TO VOID. PATIENT BACK TO BED. PATIENT FLOATED WITH 2 PILLOWS UNDER BILAT HIPS. ASSESSMENT COMPLETE. PATIENT RESTLESS AND IN PAIN. PRN PAIN MEDICATION ADMINISTERED. R HIP DRESSING C/D/I. VS AND I&Os OBTAINED AND RECORDED. FRESH WATER PROVIDED. PATIENT REPORTS NO FURTHER NEEDS. CALL LIGHT IN REACH. DAUGHTER IN ROOM.
--- NOTE | 2023-05-05 07:33 | NUR ---
RECEIVED REPORT FROM ERNST RN, PT RESTLESS IN BED, C/O 9/10 PAIN TO (R) HIP. ICE PACK APPLIED, APPEARS ANXIOUS AND DGTR AGREED. PRN ATIVAN GIVEN WITH THYROID MEDICATION THIS MORNING. TURNED IN BED AND BLANKET WEDGE PLACED BETWEEN KNEES. PT TOLERATED MEDICATION WHOLE WITH SIP OF WATER. PT NOT DUE FOR PAIN MEDICATION AT THIS TIME, FAMILY/PT INFORMED. CALL LIGHT WITHIN REACH, ALL PT CARE NEEDS MET AT THIS TIME, WILL RETURN TO REASSESS. PT STATES HER NIGHT WAS VERY RESTLESS, JUST WANTS SOME DIALOGUE ON THE PLAN AND WHY SHE IS STILL HER AND NOT LEAVING, REEDUCATED ON THE PLAN LOOKING FOR PLACEMENT IN [place], DGTR UNDERSTANDS AND WE WILL DISCUSS AGAIN LATER TODAY.
[2023-05-05] MEDS ORDERED: DULOXETINE HCL 30 MG CAP PO SCH (09:00)
--- NOTE | 2023-05-05 10:18 | NUR ---
PATIENT NEEDED TO GO TO THE RESTROOM, SHE DID SEEM A BIT CONFUSED AND WASNT STRUGGLING TO GET TO THE BATHROOM BUT WAS A BIT SHAKY. SHE KEPT WANTED TO WIPE HERSELF BUT WAS STRUGGLING AND I OFFERED TO HELP HER AND SHE LET ME. ON HER WAY TO HER BED SHE WAS A BIT CONFUSED ON WHERE SHE WAS GOING BUT I TALKED HER THROUGH EVERYTHING THAT I WAS GOING TO HELP HER. NURSE HAD TO COME IN TO CHANGE HER BANDAGE ON HER BOTTOM.
--- NOTE | 2023-05-05 10:46 | NUR ---
ROUNDS. PT SLURRING WORDS BUT UNDERSTANDABLE. FAMILY STATE NOT NEW AND PROBABLY DUE TO MEDIATION. PROVIDED SUPPORTIVE PRESENCE; PROVIDED PRAYER; GAVE PRAYER QUILT. PT EXPRESSED GRATITUDE.
--- NOTE | 2023-05-05 11:30 | NUR ---
Spoke with family and pt. Pt is tearful today. Per daughter, pt like to have a plan. Updated I left a message with again today. I can check for SNFs in other areas. Family requesting to return home and not be placed in [place].
--- NOTE | 2023-05-05 11:32 | NUR ---
PT UP IN CHAIR, REALLY SLEEPY AT THIS POINT. PT REQUESTING TO GET BACK IN BED AT THIS TIME. ASST W/ FWW BACK TO BED. ICE PACK APPLIED TO (R) HIP, WARM BLANKET PROVIDED TO PATIENT. HEELS ELEVATED UP ON PILLOW. CALL LIGHT WITHIN REACH, PT CARE NEEDS ALL MET AT THIS TIME. HAS NO NEEDS AT THIS TIME. DGTR IN HALLWAY SPEAKING WITH CORRECTIONAL SERGEANT. ALL PT CARE NEEDS MET AT THIS TIME.
--- NOTE | 2023-05-05 13:03 | NUR ---
CONNECTED WITH WHILE HE WAS SITTING IN HALLWAY. LISTENED EMPATHETICALLY HE DESCRIBED RECENT INCIDENT WITH PT. PROVIDED SUPPORTIVE PRESENCE; PROVIDED SILENT PRAYER.
--- NOTE | 2023-05-05 13:03 | NUR ---
PT VERY ANXIOUS, TEARFUL AND CRYING OUT. DOES NOT FEEL LIKE FAMILY ARE LISTENING TO HER, SHE WANTED TO GET OUT OF BED, SAID NO, AND PREVENTED HER UNTIL STAFF WERE PRESENT TO ASSIST. IT UPSET PATIENT. ASSISTED PT UP TO LOUNGE BENCH IN ROOM. PHYSICIAN ROUNDING ON PT AND DISCUSSION, ADVISED TO GET PT UP AND DRESSED IN NORMAL CLOTHES AND TAKE OUTSIDE FOR A WALK FOR FRESH AIR/VIT D. PT ASSISTED GETTING DRESSED, WARM BLANKET PROVIDED AND NAC ASSISTED FAMILY WITH WC OUTSIDE FOR ABOUT 15 MINUTES. PT ARRIVED BACK IN ROOM, SITTING UP IN CHAIR AND LUNCH PROVIDED. CALL LIGHT WITHIN REACH AT THIS TIME. ALL PT CARE NEEDS MET AT THIS TIME.
--- NOTE | 2023-05-05 15:22 | NUR ---
PT RESTING IN BED, DGTR AT BEDSIDE IN CHAIR. PT STATES SHE IS TIRED AT THIS TIME, C/O 10 PAIN TO (R) HIP. HAS WORKED WITH P/T AND O/T TODAY. REFRESHED ICE PACK APPLIED TO (R) HIP. SCHEDULED TYLENOL GIVEN ORDERED. PT REQUESTING TO NAP AT THIS TIME. ALL PT CARE NEEDS MET, CALL LIGHT WITHIN REACH.
--- NOTE | 2023-05-05 17:43 | NUR ---
PT UP TO BATHROOM AFTER DINNER, DGTR ASSISTED PT WITH FWW. DISCUSSED IV WITH MD THIS AFTERNOON, (L) WRIST IV DISCONTINUED PER MD APPROVAL. PT SITTING UP IN CHAIR, ADVISED TO TRY AND SIT UP LONG SHE COULD TODAY TO INCREASED SLEEP PATTERN FOR BEDTIME. GOOD APPETITE FOR DINNER, PAIN HAS IMPROVED 4/10 AT THIS TIME. ALL PT CARE NEEDS MET, CALL LIGHT WITHIN REACH.
--- NOTE | 2023-05-05 19:30 | NUR ---
REPORT RECEIVED FROM DAY SHIFT RN. PATIENT SITTING IN CHAIR WITH FAMILY IN THE ROOM. PATIENT RESTLESS AND ANXIOUS. PRN ANXIETY MEDICATION ADMINISTERED PER FAMILY REQUEST. PATIENT AND FAMILY HAVE NO CURRENT NEEDS. CALL LIGHT IN REACH.
--- NOTE | 2023-05-05 20:20 | NUR ---
PATIENT SITTING IN CHAIR WITH FAMILY AT BEDSIDE. SCHEDULED MEDICATION ADMINISTERED. VS AND I&Os OBTAINED AND RECORDED. FRESH ICE WATER PROVIDED. GRANDDAUGHTER STAYING IN ROOM OVER NIGHT. PATIENT HAS NO FURTHER NEEDS. CALL LIGHT IN REACH. ASSESSMENT COMPLETE. R HIP DRESSING C/D/I WITH MINIMAL SHADOWING.
--- NOTE | 2023-05-05 22:29 | NUR ---
PATIENT RESTING IN BED ON BACK WITH EYES CLOSED. RESPIRATIONS EVEN AND UNLABORED. GRANDDAUGHTER IN CHAIR AT BEDSIDE. CALL LIGHT IN REACH.
--- NOTE | 2023-05-06 00:49 | NUR ---
PATIENT RESTING IN BED ON BACK WITH EYES CLOSED. RESPIRATIONS EVEN AND UNLABORED. GDAUGHTER AT BEDSIDE. CALL LIGHT IN REACH.
--- NOTE | 2023-05-06 01:35 | NUR ---
PATIENT RESTING IN BED ON BACK WITH EYES CLOSED. RESPIRATIONS EVEN AND UNLABORED. CALL LIGHT IN REACH. GRANDDAUGHTER ASLEEP IN CHAIR AT BEDSIDE.
--- NOTE | 2023-05-06 03:35 | NUR ---
PATIENT RESTING IN BED WITH EYES CLOSED. RESPIRATIONS EVEN AND UNLABORED. CALL LIGHT IN REACH.
--- NOTE | 2023-05-06 05:20 | NUR ---
PATIENT RESTING IN BED WITH EYES CLOSED. RESPIRATIONS EVEN AND UNLABORED. CALL LIGHT IN REACH.
[2023-05-06 06:27] VITALS: BP 139/56
--- NOTE | 2023-05-06 06:36 | NUR ---
CALL LIGHT ANSWERED. PATIENT REPORTS FEELING "DISCOMFORT" IN HER R HIP. ASSESSMENT COMPLETE. R HIP DRESSING C/D/I. PRN PAIN MEDICATION ADMINISTERED. SCHEDULED MEDICATION ADMINISTERED. FRESH WATER PROVIDED. VS AND I&Os OBTAINED AND RECORDED. PATIENT HAS NO FURTHER NEEDS. CALL LIGHT IN REACH. GRANDDAUGHTER IN ROOM.
--- NOTE | 2023-05-06 08:07 | NUR ---
SPOKE TO [facility] FOR POSSIBLE PLACEMENT. THE SENIOR UI DEVELOPER MARGO IS IN A MEETING AND WILL CALL BACK SOME TIME TODAY. WILL UPDATE PATIENT AND FAMILY.
--- NOTE | 2023-05-06 09:33 | NUR ---
SPOKE TO PATIENT ABOUT THE DC PLAIN. PATIENT IS TEARY EYED AND WANTS THE TRANSFER TO HAPPEN SOON. AREA CAPTAIN WILL CONTINUE TO FOLLOW UP WITH [facility] IN [place] FOR UPDATES.
--- NOTE | 2023-05-06 10:22 | NUR ---
Patient has been in house x 10 days. She is on a regular diet. Appetite has improved recently. Dietary sending sandwiches, fruit, ice cream, or other items and not the hot entree of the day as patient prefers sandwiches or lending manager foods. Does not like to drink milk. Allergy to seafood. bmi on admit was 22.6 which is WNL for her. She is still here as she is waiting for a bed at [facility] in [place]. Family often in the room and helping encourage patient to eat. No nutrition intervention needed at this time. RD will follow up if needed.
--- NOTE | 2023-05-06 10:28 | NUR ---
CALLED [facility] AND LEFT A MESSAGE FOR SOLE LEVELER TO CALL BACK ABOUT POSSIBLE ADMISSION TO SWING BED.
--- NOTE | 2023-05-06 10:50 | NUR ---
ROUNDS. CONNECTED WITH DAUGTHER IN HALLWAY. DENIED NEEDS AT THIS TIME; INDICATED PT SLEEPING. DID NOT DISTURB PT. PROVIDED PRAYER.
--- NOTE | 2023-05-06 11:03 | NUR ---
RECIEVED REPORT FROM NURSE AT 0710. PT WAS IN ROOM WITH FAILY RESTING WITH EYES CLOSED EVEN AND UNLABORED BREATHING NOTED. AT THIS TIME PT IS ASLEEP AFTER WORKING WITH PT NO OTHER CARES NEEDED OR REQUESTED AT THIS TIME CA;LL LIGHT WITHIN REACH
[2023-05-06 11:06] VITALS: BP 130/65
--- NOTE | 2023-05-06 12:05 | NUR ---
RECEIVED CALL FROM NIYA AT [facility]. [facility] BEDS ARE FULL AT THIS TIME, LIKELY DC ON TUESDAY AND MAY TENTATIVELY BE ABLE TO ACCEPT PATIENT. REQUESTS UPDATED CHART BE FAXED OVER.
--- NOTE | 2023-05-06 14:51 | NUR ---
PT IS IN ROOM WITH FAMILY RESTING. FAMILY HAS REQUESTED HEN SHE IS ASLEEP TO PLEASE DO ONOT DISTURB
[2023-05-06 14:57] VITALS: BP 116/45
--- NOTE | 2023-05-06 15:05 | NUR ---
PATIENT AND FAMILY UPDATED THAT [facility] WILL POSSIBILTY HAVE A BED THIS COMING Tuesday05-09-23.PATIENT FAMILY IS HAPPY, SINCE FANILY LIVES IN [place] AND THEY WANT TO BE CLOSE TO HOME.
[2023-05-06 18:22] VITALS: BP 150/59
--- NOTE | 2023-05-06 19:12 | NUR ---
SHIFT REPORT RECEIVED FROM KIESHA LAUREN, PT RESTING IN BED, 3 FAMILY MEMBERS AT BEDSIDE, PT AWAKE, ALERT AND CHEERFUL, DENIES NEEDS AT THIS TIME.
[2023-05-06 20:25] VITALS: BP 146/56
--- NOTE | 2023-05-06 20:25 | NUR ---
PT AWAKE AND ALERT AT THIS TIME, CHEERFUL, DESIRES TO GO TO BR, 1PA WITH FFW, UP TO BR, UNABLE TO VOID OR HAVE BM AT THIS TIME, BACK TO BED, VS DONE AND STABLE, ASSESSMENT COMPLETED, RT MEDS GIVEN, PT ALSO MEDICATED WITH ATIVAN AND TYLENOL PER FAMILY REQUEST AND PT'S C/O RIGHT HIP PAIN, PT TALKATIVE, WARM BLANKET GIVEN, PT ATTEMPTING TO REST.
--- NOTE | 2023-05-06 21:10 | NUR ---
PT REQUESTING TO GO TO BR, ASSISTED UP 1PA WITH FFW, VOIDED BUT MISSED HAT, BACK TO BED, DESIRES TO LAY ON BACK, DECLINES HEEL PROTECTORS, PT REMAINS ON WAFFLE MATTRESS, SIDE RAILS UP X 4, BED ALARM ON, HOB ELEVATED APPROX 30 DEGREES, BED LOW POSITION, GRANDDAUGHTER IN ROOM PLANNING TO SPEND THE NIGHT, PT RESTING QUIETLY, RESP EVEN AND REG, WITHOUT OTHER REQUESTS.
--- NOTE | 2023-05-06 22:10 | NUR ---
Assisted Pt 1PA with relative FWW from bed to bathroom and back. No other needs expressed by Pt.
[2023-05-06 22:35] VITALS: BP 146/56
[2023-05-07] VITALS (9 sets, daily range): BP systolic 116–146; BP diastolic 43–67
--- NOTE | 2023-05-07 00:42 | NUR ---
PT APPEARS TO SLEEP AT THIS TIME, RESP REG.
--- NOTE | 2023-05-07 01:20 | NUR ---
PT ASSISTED UP TO BR WITH ALYSSA LAUREN USING FWW, GRANDDAUGHTER REQUESTS BED ALARM BE TURNED OFF SINCE SHE IS IN ROOM, REPORTED DONE.
--- NOTE | 2023-05-07 02:05 | NUR ---
PT APPEARS TO SLEEP, RESP EVEN AND REG.
--- NOTE | 2023-05-07 04:05 | NUR ---
PT CONTINUES TO SLEEP, RESP REGULAR, WITHOUT DISTRESS, NOTED TO HAVE TURNED HERSELF.
--- NOTE | 2023-05-07 06:25 | NUR ---
PT AWAKEN TO COMPLETE VS, VS STABLE, RT THYROID MEDICATION GIVEN CRUSHED IN PUDDING, PT ASSISTED UP TO BR WITH 1PA FWW, PT VOIDED BUT MISSED THE HAT, BACK TO BED, RESTING WITH EYES CLOSED, WITHOUT REQUESTS, GRANDDAUGHTER REMAINS AT BEDSIDE.
--- NOTE | 2023-05-07 07:21 | NUR ---
PATIENT IS LYING IN BED AND VERY LETHARGIC. PATIENT WOKE UP UPON ENTERING THE ROOM. PATIENT RESPIRATIONS ARE EVEN AND UNLABORED. PATIENT GRANDDAUGHTER IS AT THE BEDSIDE. PATIENT WHITE BOARD UP TO DATE. PATIENT AND FAMILY STATED NO FURTHER NEEDS AT THIS TIME. CALL LIGHT AND PERSONAL BELONGINGS ARE WITHIN REACH.
--- NOTE | 2023-05-07 09:46 | NUR ---
PATIENT 0900 MEDICATIONS ADMINISTERED PER THE EMAR. PATIENT 1000 VITAL SIGNS COMPLETE AND DOCUMENTED IN THE CHART. PATIENT REPOSITIONED AND IS FLOATING ON 2 PILLOWS AT THIS TIME. PATIENT WITH AND GRANDDAUGHTER AT THE BEDSIDE. PATIENT STATED NO FURTHER NEEDS AT THIS TIME. CALL LIGHT AND PERSONAL BELONGINGS ARE WITHIN REACH.
--- NOTE | 2023-05-07 11:07 | NUR ---
PATIENT IS AMBULATING IN THE HALLWAY WITH PT. PATIENT IS USING A FWW. PATIENT TOLERATING WELL.
--- NOTE | 2023-05-07 11:35 | NUR ---
PATIENT FULL ASSESSMENT COMPLETE AND DOCUMENTED IN THE CHART. PATIENT WITH AND GRANDDAUGHTER AT THE BEDSIDE. UPON ENTERING THE ROOM, PATIENT IS TEARFUL. PATIENT LUNG SOUNDS ARE CLEAR IN ALL LUNG RIZZO BILATERALLY. PATIENT IS ON ROOM AIR. PATIENT CARDIAC WITH NORMAL S1 AND S2. PATIENT SENSATION INTACT. PATIENT STATES SHE HAS NUMBNESS SOMETIMES BUT NOT RIGHT NOW. PATIENT PAIN IS A 5/10 AFTER WORKING WITH PHYSICAL THERAPY. PATIENT IS DUE FOR TYLENOL AT 1500. PATIENT BOWEL TONES ARE ACTIVE IN ALL FOUR QUADRANTS. PATIENT DRESSING ON THE RIGHT HIP IS INTACT. PATIENT DRESSING WITH DRY DRAINAGE. PATIENT WITH SCATTERED BRUISING DUE TO THE FALL. PATIENT WANTING TO GO ON A WALK OUTSIDE. PATIENT READY TO HAVE LUNCH. PATIENT WITH NO IV. PATIENT STATED NO FURTHER NEEDS AT THIS TIME. CALL LIGHT AND PERSONAL BELONGINGS ARE WITHIN REACH.
--- NOTE | 2023-05-07 13:00 | NUR ---
PATIENT TAKEN OUTSIDE WITH RN TO GET FRESH AIR. PATIENT GRANDDAUGHTER PUSHED WHEELCHAIR.
--- NOTE | 2023-05-07 15:51 | NUR ---
PATIENT 1500 TYLENOL ADMINISTERED PER THE EMAR. PATIENT STATED PAIN IS 6/10 IN THE RIGHT HIP AFTER ROLLING THE PATIENT A FEW TIMES. PATIENT SKIN ASSESSMENT COMPLETE. BRUISING NOTED SCATTERED THROUGHOUT. 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 ALEVYN IN PLACE AT THIS TIME. ALEVYN PLACED ON 05/05/23 ON THE LEFT INNER KNEE IS INTACT. SKIN IS DRY AND FRAGILE. SKIN ASSESSMENT AND WOUND CARE COMPLETE WITH XIN MALDONADO. PATIENT WITH AND GRANDDAUGHTER AT THE BEDSIDE. PATIENT STATED NO FURTHER NEEDS AT THIS TIME. CALL LIGHT AND PERSONAL BELONGINGS ARE WITHIN REACH.
--- NOTE | 2023-05-07 16:11 | NUR ---
SKIN ASSESSMENT COMPLETED WITH PRIMARY RN. ALLEVYN DRESSING IN PLACE TO COCCYX, DRESSING REMOVED, SMALL STAGE 2 DECUBITUS UNDER DRESSING, PRIMARY RN STATES ON 05/04 PT HAD SMALL FISSURE FROM WIPING/PERICARE, WOUND APPEARS WORSE TODAY. WOUND ASSESSMENT COMPLETED. WOUND APPROXIMATELY 0.2X0.2 CM AND SUPERFICIAL. SITE CLEANSES AND NEW FOAM ADHESIVE DRESSING APPLIED. DISCUSSED WITH PT OFF LOADING AND MOBILITY. NOTIFIED.
--- NOTE | 2023-05-07 18:25 | NUR ---
PATIENT IS LYING IN BED WITH EYES OPEN AND RESPIRATIONS ARE EVEN AND UNLABORED. PATIENT REPOSITIONED ON THEIR LEFT SIDE. PATIENT HAVING SOME PAIN AT THE SURGICAL SITE ON THE RIGHT HIP. ICE PACK PLACED ON THE AREA WITH A BARRIER BETWEEN THE SKIN AND THE ICE PACK. PATIENT WITH FOUR FAMILY MEMBERS IN THE ROOM AT THIS TIME. PATIENT STATED NO FURTHER NEEDS AT THIS TIME. CALL LIGHT AND PERSONAL BELONGINGS ARE WITHIN REACH.
--- NOTE | 2023-05-07 20:30 | NUR ---
pt in bed, pleasantly fonfused, easily redirected. Up to brp, voided, 2pa/fww, back to bed, tolerated well. Acticoat dressing RHIP intact. trender area. was medicated with scheduled Tylenol and prn OXycodone 2.5mg po. took all other meds well. Repositioned in bed. hob elevated. family rooming in
--- NOTE | 2023-05-07 21:45 | NUR ---
PATIENT NEEDED TO USE THE RESTROOM AND I WAS STANDING BY WHEN SHE WAS USING HER WALKER. WHEN SHE FINISHED WASHING HER HANDS SHE WANTED TO BRUSH HER TEETH AND I SET UP HER THINGS. SHE BRUSHED HER TEETH INDEPENDENT. BEFORE I LEFT I ASKED HER IF SHE NEEDED ANYTHING ELSE AND SHE DIDNT. HER CALL LIGHT WAS NEAR HER.
[2023-05-08] VITALS (9 sets, daily range): BP systolic 111–145; BP diastolic 48–63
--- NOTE | 2023-05-08 00:03 | NUR ---
pT SLEEPING, LAYING ON HER BACK, HOB AND LE ELEVATED. NO S/SX DISTRESS, FAMILY IN ROOM
--- NOTE | 2023-05-08 02:25 | NUR ---
RESTING, EYES CLOSED, NO S/SX DISTRESS
--- NOTE | 2023-05-08 06:42 | NUR ---
Pt up to BRP, 1PA/FWW, voided, back to bed slow gait, much improved. Back to bed with assist. Dressing R hip withold drainage. coxxyc area allevyn intact. Was medicated with Oxycodone at begining of shift and scheduled Tylenol, effective, slept, Up total of two times this shift. voiding QS, had bm. cooperative. pleasan. family in room
--- NOTE | 2023-05-08 06:57 | NUR ---
REPORT RECEIVED FROM QUILL CLEANING MACHINE OPERATOR RN KAITLYN. PATIENT IS RESTING IN BED WITH EYES CLOSED AND RESPIRATIONS ARE EVEN AND UNLABORED. PATIENT WITH GRANDDAUGHTER LYING ON THE COUCH RESTING. PATIENT STATED NO FURTHER NEEDS AT THIS TIME. CALL LIGHT AND PERSONAL BELONGINGS ARE WITHIN REACH.
--- NOTE | 2023-05-08 09:57 | NUR ---
0900 MEDICATIONS ADMINISTERED PER THE EMAR. PATIENT VITAL SIGNS AND INTAKE AND OUTPUT VALUES TAKEN AND ARE DOCUMENTED IN THE CHART. PATIENT REFUSED SENNA TABLET. PATIENT AMBULATED TO THE BATHROOM AND HAD A BOWEL MOVEMENT AND UNMEASURED VOID. PATIENT IS SITTING UPRIGHT IN THE RECLINER AT THIS TIME. PATIENT FULL ASSESSMENT COMPLETE AND DOCUMENTED IN THE CHART. PATIENT STATED PAIN IS 4/10 AT THIS TIME. PATIENT LUNG SOUNDS ARE CLEAR BILATERALLY IN ALL LUNG RIZZO. PATIENT IS ON ROOM AIR. CARDIAC WITH NORMAL S1 AND S2. RADIAL PULSES ARE STRONG BILATERALLY. PATIENT SENSATION INTACT. PATIENT WITH NUMBNESS SOMETIMES. PATIENT SKIN WITH SCATTERED BRUISING. PATIENT WITH ALEVYN ON THE LEFT INNER KNEE. DRESSING IS INTACT. NO DRAINAGE NOTED ON THE DRESSING. PATIENT COCCYX DRESSING CHANGED 05/08/23 DUE TO IT BEING SOILED. PATIENT WOUND IS STILL A STAGE 2 AT THIS TIME. NEW ALEVYN IN PLACE. PATIENT WITH GENERALIZED WEAKNESS. PATIENT DRESSING ON THE RIGHT HIP IS INTACT. DRESSING WITH DRY DRAINAGE NOTED. PATIENT WITH NO IV. PATIENT WITH GRANDDAUGHTER AND ARE AT THE BEDSIDE. PATIENT STATED NO FURTHER NEEDS AT THIS TIME. CALL LIGHT AND PERSONAL BELONGINGS ARE WITHIN REACH.
--- NOTE | 2023-05-08 13:00 | NUR ---
PATIENT AMBULATED TO THE BATHROOM AND ABLE TO VOID LIGHT YELLOW URINE. PATIENT AMBULATED BACK TO THE BATHROOM AND IS NOW SITTING IN RECLINER. PATIENT 1400 VITAL SIGNS COMPLETE AND DOCUMENTED IN THE CHART. PATIENT WITH PAIN RATED 6/10 AT THIS TIME. PATIENT GIVEN PRN OXYCODONE PER THE EMAR. PATIENT WITH AND GRADNDAUGHTER AT THE BEDSIDE. PATIENT STATED NO FURTHER NEEDS AT THIS TIME. CALL LIGHT AND PERSONAL BELONGINGS ARE WITHIN REACH.
--- NOTE | 2023-05-08 16:30 | NUR ---
PATIENT AMBULATED TO THE BATHROOM AND ABLE TO VOID LIGHT YELLOW URINE. PATIENT STATED PAIN WAS 6/10 IN THE RIGHT HIP. PATIENT WITH THREE VISITORS IN THE ROOM. PATIENT IS BACK IN BED. PATIENT LINENS CHANGED AND POSITIONED IN BED TO PROMOTE COMFORT. PATIENT COCCYX ALEVN IN PLACE. DRESSING IS CLEAN, DRY, AND INTACT. FAMILY EDUCATED ON HOW SHE CAN DO THINGS MORE INDEPENDENTLY TO GET CLOSER TO HER BASELINE. PATIENT FAMILY EXPRESSED UNDERSTANDING AND AGREED. PATIENT STATED NO FURTHER NEEDS AT THIS TIME. CALL LIGHT AND PERSONAL BELONGINGS ARE WITHIN REACH. CALL LIGHT AND PERSONAL BELONGINGS ARE WITHIN REACH.
--- NOTE | 2023-05-08 17:00 | NUR ---
PATIENT POSITIONED ON HER RIGHT SIDE. PATIENT FAMILY CONCERNED ABOUT POSITIONING HER. FAMILY EDUCATED ON THE IMPORTANCE OF STAYING OFF HER COCCYX.
--- NOTE | 2023-05-08 17:25 | NUR ---
THIS RN IN ROOM WITH PRIMARY NURSE, PT REFUSES GETTING UP TO CHAIR FOR DINNER, STATES SHE FEELS MORE COMFORTABLE IN BED AT THIS TIME. PT EDUCATION ON TURNING TO RELIEVE PRESSURE FROM WOUND, PT AND FAMILY VERBALIZE UNDERSTANDING. PT AND FAMILY STATE ALL QUESTIONS HAVE BEEN ANSWERED AT THIS TIME. NO FURTHER NEEDS STATED AT THIS TIME, CALL LIGHT WITHIN REACH.
--- NOTE | 2023-05-08 19:36 | NUR ---
pt up in chair, visiting with family,
--- NOTE | 2023-05-08 20:44 | NUR ---
pt flat, anxious affect. pleasant and cooperative. follows instructions. coop with assessmnets. up from chair to BRP, unable to void after severa minutes in there. Back to bed, 1PA/FWW. back to bed. cooperative with turning and repositioning. Ativan given on requests per anxiety, tolerating liquids well, no n/v. Sacral Allevyn dressing in place, Dressing RHIP acticoat with old drainage, area tender, slight edema and firmness around dressing. Family rooming in
--- NOTE | 2023-05-08 23:17 | NUR ---
RESTING, NO S/SX DISTRESS, FAMILY ROOMING IN
[2023-05-09] VITALS (9 sets, daily range): BP systolic 116–151; BP diastolic 42–60
--- NOTE | 2023-05-09 00:40 | NUR ---
UP TO BR, SBA/FWW, VOIDED, BACKA TO BED. DID OWN FRANK CARE, REQUIRED ASSISTANCE REPOSITIONING IN BED. TOLERATING LIQUIDS WELL, ALINA C/O PAIN. DRESSING R HIP WITH OLD DRAINAGE, ALLEVYN TO SACRAL/GLUTEAL AREA INTACT. FAMILY ROOMING IN
--- NOTE | 2023-05-09 01:00 | NUR ---
UP TO BRP. VOIDED AND HAD LARGE SOFT [place] BM, DID OWN FRANK CARE, SBA/FWW. DRESSING R HIP WITH OLD DRAINAGE, SACRAL/GLUTEAL AREA ALLEVYN DRESSING INTACT. BACK TO BED, ALINA NEED FOR PAIN MED, FORGETFUL, COOPERATIVE. HELPED REPOSITIONING IN BED. FAMILY ROOMING IN
--- NOTE | 2023-05-09 06:28 | NUR ---
Pt has slept well this shift. On room air, dressing R hip with old drainage. tender area. Allevyn to coccyx/gluteal area intact. Up to BRP a couple times, voiding QS, and had 2 bm's. Needs SBA/FWW, much improved gait. Was medicated with Ativan per anxiety at begining opf shift and Oxycodone 2.5mg per pain. effective. tolerating fluids and diet well. Anxious over moving to SNF place. Family rooming in
--- NOTE | 2023-05-09 07:01 | NUR ---
up to brp, 1pa/fww, voided, did own arash care, back to bed with assist. c/o R hip 11/21 pain, medicated with Oxycodone 2.5mg
--- NOTE | 2023-05-09 07:05 | NUR ---
REPORT RECEIVED FROM MILL OPERATOR RN KAITLYN. PATIENT IS AWAKE AND RESPIRATIONS ARE EVEN AND UNLABORED. PATIENT WITH VISITOR AT THE BEDSDIE. PATIENT WHITE BOARD UP TO DATE. PATIENT STATED NO FURTHER NEEDS AT THIS TIME. CALL LIGHT AND PERSONAL BELONGINGS ARE WITHIN REACH.
--- NOTE | 2023-05-09 07:42 | NUR ---
UP DATED MEDICAL RECORDS SENT TO [facility]. PATIENT IS WAITING TO GO TO THE SWING BED/SNF IN [place] TO BE CLOSER TO FAMILY.
--- NOTE | 2023-05-09 08:43 | NUR ---
PATIENT GIVEN FRESH CUP OF BLACK COFFEE. PATIENT IS SITTING UPRIGHT IN THE CHAIR AND EATING BREAKFAST. PATIENT WITH AND FAMILY MEMBER AT THE BEDSDIE. PATIENT STATED NO FURTHER NEEDS AT THIS TIME. CALL LIGHT AND PERSONAL BELONGINGS ARE WITHIN REACH.
--- NOTE | 2023-05-09 09:37 | NUR ---
PATIENT SITTING UP IN CHAIR AT THIS TIME. FAMILY IN ROOM. VITALS AND I&O'S DONE AND CHARTED. PATIENT COMPLAINING OF SOME LEG PAIN, RN AWARE. CALL LIGHT IN REACH. NO FURTHER NEEDS AT THIS TIME.
--- NOTE | 2023-05-09 09:48 | NUR ---
[facility] IN [place] CALLED TO SEE IF THE PATIENT WILL BE TRANSFERED TODAY TO [place]. NO ANSWER AND A MESSAGE LEFT. SALES FLOOR ASSOCIATE WILL CALL BACK IN A HOUR IF THERE HAS NOT BEEN A CALL BACK.
--- NOTE | 2023-05-09 10:12 | NUR ---
PATIENT MORNING MEDICATIONS ADMINISTERED PER THE EMAR. PATIENT FULL ASSESSMENT COMPLETE AND DOCUMENTED IN THE CHART. PATIENT WITH NO IV SITE. PATIENT PAIN IS 9/10 IN THE RIGHT HIP. RIGHT HIP DRESSING IN PLACE WITH DRY DRAINAGE NOTED. PATIENT WITH SCATTERED BRUISING. PATIENT LUNG SOUNDS ARE CLEAR IN ALL LUNG RIZZO BILATERALLY. PATIENT IS ON ROOM AIR. CARDIAC ASSESSMENT WITH RADIAL AND PEDAL PULSES ARE STRONG BILATERALLY. CAPILLARY REFILL IS LESS THAN 3 SECONDS IN THE UPPER AND LOWER EXTREMITIES BILATERALLY. PATIENT BOWEL TONES ARE ACTIVE IN ALL FOUR QUADRANTS. PATIENT SENSATION IS INTACT. PATIENT WITH NO COMPLAINTS OF NUMBNESS AND TINGLING AT THIS TIME. PATIENT IS ALERT AND ORIENTED TIMES 3. PATIENT IS NOT ORIENTED TO DAY OF THE WEEK AT THIS TIME. PATIENT WITH AND FAMILY AT THE BEDSIDE. PATIENT COUGHED UP WATER AFTER TAKING SOME OF HER PILLS. PATIENT BRIEF AND CLOTHING CHANGED. DRESSING ON THE COCCYX REMOVED AND REPLACED DUE TO IT COMING OFF. PATIENT TOLERATED WELL. PATIENT STATED NO FURTHER NEEDS AT THIS TIME. PATIENT WITH 3 FAMILY MEMBERS IN THE ROOM. CALL LIGHT AND PERSONAL BELONGINGS ARE WITHIN REACH.
--- NOTE | 2023-05-09 10:25 | NUR ---
SPOKE TO FAMILY AND THE PATIENT. WE CONTINUE TO WAIT FOR THE OK TO TRANSFER THE PATIENT TO [place].
--- NOTE | 2023-05-09 11:18 | NUR ---
PATIENT RATED PAIN 9/10 IN THE RIGHT HIP AT THIS TIME. PATIENT GIVEN 2.5 MG OXYCODONE PRN PER THE EMAR. CAME AND SAW THE PATIENT WITH FAMILY AT BEDSIDE. PATIENT DAUGHTER EXPRESSED CONCERN TO IN REGARDS TO PAIN MANAGEMENT FOR THE DRIVE TO [employer]. PATIENT GIVEN FRESH CUP OF ICE WATER AT THIS TIME. PATIENT AND FAMILY STATED NO FURTHER NEEDS AT THIS TIME. CALL LIGHT AND PERSONAL BELONGINGS ARE WITHIN REACH.
[2023-05-09] MEDS ORDERED: OXYCODONE HCL 5 MG TAB PO PRN (11:30)
--- NOTE | 2023-05-09 11:48 | NUR ---
ROUNDS. PHYSICAL THERAPY WORKING WITH PT. DID NOT INTERRUPT. PROVIDED PRAYER.
--- NOTE | 2023-05-09 11:53 | NUR ---
PATIENT IS WORKING WITH PHYSICAL THERAPY AT THIS TIME.
--- NOTE | 2023-05-09 12:55 | NUR ---
PATIENT IS IN THE BATHROOM AT THIS TIME. PATIENT WITH FAMILY IN THE ROOM. CALL LIGHT WITHIN REACH.
--- NOTE | 2023-05-09 13:28 | NUR ---
RN CALLED DR. BARRERA TO CLARIFY ABOUT PUTTING A NEW DRESSING ON OR LEAVING THE RIGHT HIP INCISION OPEN TO AIR. RN INSTRUCTED TO PLACE A NEW DRESSING. NO NEW ORDER AT THIS TIME. CALL ENDED.
--- NOTE | 2023-05-09 13:56 | NUR ---
PATIENT IS LYING IN BED. VITAL SIGNS AND INTAKE AND OUTPUT VALUES ARE TAKEN AND DOCUMENTED IN THE CHART. PATIENT RATED PAIN OF 5/10 IN THE RIGHT HIP. PATIENT DRESSING ON THE RIGHT HIP CHANGED PER ORDER FROM . SHARAN INTACT UNDERNEATH THE DRESSING. SMALL AMOUNT OF DRY DRAINAGE NOTED AROUND THE SURGICAL SITE. PATIENT TOLERATED WELL. PATIENT COCCYX DRESSING IS CLEAN, DRY, AND INTACT. NO DRAINAGE NOTED ON THE DRESSING. PATIENT NOW POSITIONED ON HER LEFT SIDE TO DECREASE PRESSURE ON THE COCCYX. PATIENT AND FAMILY STATED NO FURTHER NEEDS AT THIS TIME. CALL LIGHT AND PERSONAL BELONGINGS ARE WITHIN REACH.
--- NOTE | 2023-05-09 14:05 | NUR ---
THE DEPARTMENT STORE SALESPERSON HAS CALLED [facility] MANY TIMES TODAY AND NO ANSWER. PATIENT TRANSFER THAT WAS SUPPOSED TO HAPPEN TODAY. DEPARTMENT STORE SALESPERSON WILL CONTINUE TO CALL AND UPDATE FAMILY.
--- NOTE | 2023-05-09 15:10 | NUR ---
PATIENT SCHEDULED TYLENOL ADMINISTERED PER THE EMAR. PATIENT TWO DAUGHTERS AND ARE AT THE BEDSIDE. PATIENT GIVEN ICE CREAM UPON REQUEST. PATIENT IS SITTING ON THE EDGE OF BED AND TOLERATING WELL. PATIENT STATED NO FURTHER NEEDS AT THIS TIME. CALL LIGHT AND PERSONAL BELONGINGS ARE WITHIN REACH.
--- NOTE | 2023-05-09 16:21 | NUR ---
PRN ATIVAN ADMINISTERED PER THE EMAR. PATIENT WITH TWO DAUGHTERS AND AT THE BEDSIDE. PATIENT IS POSITIONED ONT HEIR LEFT SIDE TO GET PRESSURE OFF OF HER BOTTOM. PATIENT AND FAMILY STATED NO FURTHER NEEDS AT THIS TIME. CALL LIGHT AND PERSONAL BELONGINGS ARE WITHIN REACH.
--- NOTE | 2023-05-09 16:26 | NUR ---
DR. BARRERA NOTIFIED OF PATIENT STAYING THE NIGHT. NO NEW ORDERS AT THIS TIME. CALL ENDED.
--- NOTE | 2023-05-09 19:05 | NUR ---
FAMILY ASKED FOR ASSISTANCE. SBA PATIENT TO BATHROOM AND BACK TO BED. PATIENT HAD SOFT/FORMED MEDIUM SIZE BM AND VOIDED UNMEASURED. PATIENT IS SITTING AT THE EDGE OF THE BED WITH AT BEDSIDE. FAMILY IS IN THE ROOM.
--- NOTE | 2023-05-09 20:30 | NUR ---
Pt up to brp earlier, voided and had bm, back to bed 1PA/FWW. c/o 11/21 R hip pain. Medicated with Oxycodone 5mg po. Assessment deferred until when pt gets up again to br. family in room aware. Pt repositioned in bed, more painful than earlier. Pleasant, cooperative, forgetful
--- NOTE | 2023-05-09 23:35 | NUR ---
up to brp, SBA/FWW, voided, back to bed, Dressing to coxxycc area changed. R hip acticoat CDI. no c/o pain at this time
--- NOTE | 2023-05-10 02:16 | NUR ---
pt in bed, resting, no s/sx distress, family in room
[2023-05-10 04:48] VITALS: BP 159/62
--- NOTE | 2023-05-10 07:10 | NUR ---
Report from Brianna Cotton RN. Lying in bed, eyes closed. Respirations even and unlabored. Daughter at bedside. Allowed to rest. Call light in reach.
--- NOTE | 2023-05-10 09:19 | NUR ---
CHART FAXED TO CAITLYN THOMPSON AT THE [facility] FOR PLACEMENT.
[2023-05-10 09:25] VITALS: BP 128/43
--- NOTE | 2023-05-10 10:12 | NUR ---
INTO CHECK ON PATIENT. PATIENT LAYING IN BED WITH FAMILY AT BEDSIDE. PATIENT DENIES ANY NEEDS AT THIS TIME BUT FAMILY WOULD LIKE TO TALK TO CASE MANAGEMENT. THIS NURSE WENT AND ADVISED CASE MANAGEMENT AND THEY WILL GO SPEAK TO FAMILY SHORTLY.
--- NOTE | 2023-05-10 11:25 | NUR ---
ROUNDS. IN ROOM WITH PT. DECLINED SPIRITUAL CARE SERVICES AT THIS TIME. PROVIDED SILENT PRAYER.
--- NOTE | 2023-05-10 12:13 | NUR ---
PATIENT GIVEN PAIN MEDICATION. PATIENT STATES HER RIGHT HIP IS A 10/10. PATIENT IS UP WITH FAMILY AT THE SIDE OF THE BED WITH WALKER TO CHANGE POSITIONS FOR A FEW MINUTES. PATIENT ALSO HAVING EPISODES OF CRYING AND WAS GIVEN ATIVAN.
--- NOTE | 2023-05-10 13:10 | NUR ---
RECVD CALL FROM MARGO AT [facility], PATIENT HAS BEEN ACCEPTED BY MD AND PT. THEY WOULD LIKE THE PATIENT TO COME TOMORROW. SPOKE WITH CECILY CHILDREN'S MINISTRY DIRECTOR AND PATIENT DAUGHTERS, UPDATE GIVEN. WILL SEND DISCHARGE PASSR,ORDERS AND DC SUMMARY TO [phone]. PATIENTS FAMILY WOULD LIKE PATIENT TO DISCHARGE AT 1300. WALDO LAUREN UPDATED.
[2023-05-10 14:17] VITALS: BP 144/56
--- NOTE | 2023-05-10 14:31 | NUR ---
PATIENT WANTED A SHOWER. I SET UP THE SHOWER. SHE WAS ABLE TO HELP WITH WASHING HER ARMS I DID HER BACK, HEAD, AND LEGS. WHEN CHANGING HER SHE WAS ABLE TO LIFT HER LEFT LEG BUT NEEDED HELP LIFTING HER RIGHT LEG.
--- NOTE | 2023-05-10 14:35 | NUR ---
PATIENT UP INTO SHOWER. ALLYVN CHANGED ON BUTTOCKS,LEFT KNEE AND DRESSING CHANGED ON RIGHT HIP. NO COMPLICATIONS, PATIENT TOLERATED WELL. PATIENT HAPPY AND FEELS GREAT AFTER THE SHOWER.
--- NOTE | 2023-05-10 15:47 | NUR ---
PATIENT PAIN IS IMPROVING. PATIENT GIVEN SCHEDULED TYLENOL. PATIENT LAYING IN BED WITH HOB ELEVATED LISTENING TO MUSIC WITH FAMILY AT BEDSIDE.
--- NOTE | 2023-05-10 16:19 | NUR ---
Faxed pt orders, CHRISTIAN, FABIANA summary to [facility] as first faxed did not go.
[2023-05-10 17:53] VITALS: BP 143/53
[2023-05-10 20:09] VITALS: BP 119/45
--- NOTE | 2023-05-10 20:22 | NUR ---
pt in bed, family and pt increaed anxiety. Medicated with Ativan. Pt cooperativ with assessment and vitals, flat affect, anxious, easily redirectable. clear lungs, no cough. tolerating liquids well. Family rooming in
[2023-05-10 20:24] VITALS: BP 119/45
--- NOTE | 2023-05-10 23:06 | NUR ---
ANSWERED PATIENT'S DAUGHTER'S CALL. THIS OVEN OPERATOR AUTOMATIC IN TO THE ROOM. PATIENT IS SITTING ON THE TOILET. DAUGHTER STATED SHE NEEDS HELP WIPING. FRANK CARE ASSISTED. PATIENT HAD MEDIUM SIZE FORMED BM. PATIENT IS BACK IN BED. DENIES OTHER NEEDS AT THIS TIME.
--- NOTE | 2023-05-10 23:19 | NUR ---
THIS RN RESUMING CARE OF PATIENT. REPORT RECIEVED. PATIENT IN BED ON BACK WITH EYES CLOSED, RESTING. RESPIRATIONS EVEN AND UNLABORED. CALL LIGHT IN REACH.
--- NOTE | 2023-05-11 01:25 | NUR ---
PATIENT RESTING IN BED ON BACK WITH EYES CLOSED. RESPIRATIONS EVEN AND UNLABORED. CALL LIGHT IN REACH.
--- NOTE | 2023-05-11 03:23 | NUR ---
PATIENT RESTING IN BED ON BACK WITH EYES CLOSED. RESPIRATIONS EVEN AND UNLABORED. CALL LIGHT IN REACH.
--- NOTE | 2023-05-11 05:46 | NUR ---
PATIENT RESTING IN BED ON BACK WITH EYES CLOSED. RESPIRATIONS EVEN AND UNLABORED. CALL LIGHT IN REACH.
[2023-05-11 06:33] VITALS: BP 138/53
--- NOTE | 2023-05-11 06:37 | NUR ---
PATIENT RESTING IN BED WITH EYES CLOSED. AWAKENS EASILY. SCHEDULED MEDICATION ADMINISTERED, SEE MAR. VS AND I&Os OBTAINED AND RECORDED. ASSESSMENT COMPLETE. PATIENT DENIES PAIN. R HIP DRESSING C/D/I. PATIENT HAS NO FURTHER NEEDS. CALL LIGHT IN REACH.
--- NOTE | 2023-05-11 07:15 | NUR ---
REPORT RECEIVED FROM AB INITIO ETL DEVELOPER RN SHWETA. PATIENT DAUGHTER IS AT THE BEDSIDE. PATIENT WITH EYES OPEN AND RESPIRATIONS ARE EVEN AND UNLABORED. PATIENT GIVEN DRINK OF WATER UPON REQUEST. PATIENT STATED NO FURTHER NEEDS AT THIS TIME. CALL LIGHT AND PERSONAL BELONGINGS ARE WITHIN REACH.
--- NOTE | 2023-05-11 08:34 | NUR ---
0900 MEDICATIONS ADMINISTERED PER THE EMAR. PATIENT IS SITTING UPRIGHT IN BED AND EATING BREAKFAST, HER DAUGHTER IS AT THE BEDSIDE. FULL ASSESSMENT COMPLETE AND DOCUMENTED IN THE CHART. PATIENT RATED PAIN A 7/10 IN THE RIGHT HIP. SCHEDULED TYLENOL ADMINISTERED. LUNG SOUNDS ARE CLEAR IN ALL LUNG RIZZO BILATERALY, ON ROOM AIR. CARDIAC WITH NORMAL S1 AND S2. RADIAL AND PEDAL PULSES ARE STRONG BILATERALLY. CAPILLARY REFILL IS LESS THAN 3 SECONDS IN THE UPPER AND LOWER EXTREMITIES BILATERALLY. BOWEL TONES ARE ACTIVE IN ALL FOUR QUADRANTS. FOAM ADHESIVE DRESSING ON THE LEFT INNER KNEE IS CLEAN, DRY, AND INTACT. DRESSING ON THE COCCYX REPLACED THIS MORNING. SKIN RED. ENCOURING PATIENT TO REPOSITION HERSELF TO GET HER OFF BONY PROMINENCES TO PREVENT FURTHER SKIN BREAKDOWN. DRESSING ON THE RIGHT HIP IS CLEAN, DRY, AND INTACT. NO DRAINAGE NOTED. PATIENT WITH SCATTERED BRUISING. PATIENT WITH NO IV SITE. PATIENT BREAKFAST TRAY IS SET UP. PATIENT AND HER DAUGHTER STATED NO FURTHER NEEDS AT THIS TIME. CALL LIGHT AND PERSONAL BELONGINGS ARE WITHIN REACH.
[2023-05-11 09:21] VITALS: BP 125/44
[2023-05-11 09:36] VITALS: BP 125/44
--- NOTE | 2023-05-11 10:04 | NUR ---
ROUNDS. DAUGHTER AT BEDSIDE. PT TEARFUL; REQUESTED PRAYER TO BLESS HER JOURNEY HOME WHICH I PROVIDED. PT AND DAUGHTER EXPRESSED APPRECIATION.
--- NOTE | 2023-05-11 12:48 | NUR ---
PATIENT NEEDED TO USE THE RESTROOM AND TO BRUSH HER TEETH WELL. SHE WAS ABLE TO BRUSH THEM ON HER OWN I JUST HAD TO PUT TOOTHPAST ON THE TOOTH BRUSH. I DID HER VITALS AND ASKED IF SHE NEEDED ANYTHING ELSE AND SHE WAS IN PAIN I NOTIFIED HER NURSE.
[2023-05-11 13:21] VITALS: BP 144/49
[2023-05-11 13:22] VITALS: BP 144/49
--- NOTE | 2023-05-11 13:25 | NUR ---
REPORT GIVEN TO ALTHEA IN [facility]. ALTHEA WITH NO FURTHER QUESTIONS. CALL BACK NUMBER GIVEN FOR QUESTIONS THAT COME UP. CALL ENDED.
== END 2023-05-11 13:12 | disposition home or self-care (01) | DRG 522 ==
LOC: MS 04-27 00:04
PROVIDERS: Family Medicine; Internal Medicine; ADMIT Specialist; ATTEND Specialist
PROC: 0SRR0JZ Replacement of Right Hip Joint, Femoral Surface with Synthetic Substitute, Open Approach (ICD-10-PCS; principal; 2023-04-27 09:30)
DX: S72.001A Fracture of unspecified part of neck of right femur, initial encounter for closed fracture (principal); N39.0 Urinary tract infection, site not specified; I25.10 Atherosclerotic heart disease of native coronary artery without angina pectoris; E78.00 Pure hypercholesterolemia, unspecified; I10 Essential (primary) hypertension; F03.90 Unspecified dementia, unspecified severity, without behavioral disturbance, psychotic disturbance, mood disturbance, and anxiety; R29.6 Repeated falls; E03.9 Hypothyroidism, unspecified; W18.30XA Fall on same level, unspecified, initial encounter; Z88.1 Allergy status to other antibiotic agents; Z98.890 Other specified postprocedural states; Z90.49 Acquired absence of other specified parts of digestive tract; Z91.013 Allergy to seafood; Z79.899 Other long term (current) drug therapy; Z79.890 Hormone replacement therapy
CPT/HCPCS: 01214; 36415; 71045; 72170; 74018; 80048; 80053; 81001; 83735; 84100; 85025; 85610; 85730; 93005; 93010; 94762; 97110; 97112; 97116; 97162; 97166; 97530; 97535; 97537; A9270; A9270-GY; C1776; J0131; J0690; J1100; J1170; J1885; J2001; J2250; J2405; J2704; J2765; J3010; J7121